=== PATIENT | female | born 1950 | race Caucasian/White ===

== ENCOUNTER 2020-01-04 13:07 | Outpatient (CLI) | payer MEDICARE, SELFPAY ==
--- NOTE | 2020-01-04 13:30 | USCV_ITS ---
Kita Carlos Age: 70 Gender: F : 1950 Exam Date: 01/04/2020 13:26 Ordering Phys: Vinnie Johnson MD ([email or web address]) Technologist: Bee Galeano [place] [facility] [place] PVD Risk Factors: Previous Vascular Surgery: Right Brachial BP: / Left Brachial BP: / Right Left Velocity (cm/s) Spectral Plaque Velocity (cm/s) Spectral Plaque Syst/Diast Broadening Syst/Diast Broadening 87.10/ 20.90 Prox CCA 94.80 / 23.00 75.90/ 16.30 Mid CCA 60.60 / 15.40 55.70/ 15.40 Distal CCA 54.80 / 19.20 35.00/ 9.20 Prox ICA 49.00 / 12.50 63.70/ 23.70 Mid ICA 75.90 / 26.90 67.00/ 27.60 Distal ICA 74.00 / 13.50 92.30 ECA 98.00 0.77 ICA/CCA 0.80 Antegrade Vertebral Antegrade 28.80/ 15.40 cm/s 45.20/ 12.50 cm/s Bi Subclavian Bi 116.5 89.40 0 FINDINGS Comparison: none available. No significant elevation of systolic or diastolic velocities. Waveforms are normal. No significant amount of calcified plaque or intimal thickening identified. CONCLUSIONS Normal carotid doppler ultrasound. Dr. Olivia Brothers DO (Electronically Signed) Final Date: 04 January 2020 15:17 S
--- NOTE | 2020-01-04 14:15 | USCV_ITS ---
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 Resting TBI of 0.6 bilaterally CONCLUSIONS 1. Abnormal resting NATHALIA and TBI on the right side, suggestive of moderate peripheral artery disease 2. Features of mild peripheral artery disease in the left side Dr Hugo Matthews MD [facility] (Electronically Signed) Final Date: 04 January 2020 20:16 S
== END 2020-01-04 13:08 | disposition home or self-care (01) ==
LOC: US 13:12
PROVIDERS: Family Provider Nurse Practitioner Family; PCP Nurse Practitioner Family; Visit Provider Internal Medicine Cardiovascular Disease
DX: I73.9 Peripheral vascular disease, unspecified (principal)
CPT/HCPCS: 93880; 93922

== ENCOUNTER 2020-01-22 10:54 | Outpatient (CLI) | payer MEDICARE, SELFPAY ==
--- NOTE | 2020-01-22 11:14 | CT_ITS ---
WS: [id number] CT scan of the chest With IV contrast, CT scan of the abdomen and pelvis with IV contrast and with oral contrast. Additional two-dimensional coronal and sagittal reconstruction was performed. 01/22/2020 Clinical Data: LYMPHOMA RESTAGING Comparison: None. DLP: 1570.[address] scans at [facility] use at least one of these dose optimization techniques: automat ed exposure control; mA and/or kV adjustment per patient size (includes targeted exams where dose is matched to clinical indication); or iterative reconstruction. Findings: Chest: No nodules, masses or effusions are seen. The heart size is normal with no pericardial effusion. The pulmonary arterial system and thoracic aorta demonstrate no abnormalities or dilatations. Trachea bifurcates normally into the bronchi. There is no axillary or significant mediastinal adenopathy. Abdomen/pelvis: The liver, spleen, adrenal glands and pancreas are normal. There are clips in the gallbladder fossa f rom a cholecystectomy. The kidneys show equal bilateral contrast excretion with no cyst or masses. The abdominal aorta is normal in size with calcification in the wall.. No appendicitis or diverticulitis is seen. Oral contrast is in the stomach, small bowel and proximal colon and there is no bowel dilatation. No abscess, adenopathy, ascites, mass, obstruction or ileus i s seen. The bladder is unremarkable. The uterus is absent. No inguinal hernia is seen. 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 CT/CT chest abd pel w con* Impression: 1. Negative for significant adenopathy. 2. Negative for acute abdominal or pelvic abnormalities.
[2020-01-22] MEDS: iohexol 300 mg/mL 50 mL Btl PO (11:21)
[2020-01-22 11:46] LABS: Basophils % 0.5 %; Eosinophils # 0.2 10^3/uL (0.0-0.8); Eosinophils % 3.3 %; Hematocrit 43.6 % (37.0-47.0); Hemoglobin 13.4 g/dL (11.5-15.3); Lymphocytes # 1.4 10^3/uL (0.8-4.8); Lymphocytes % 23.5 %; Mean Corpuscular HGB Conc 30.7 g/dL (30.0-36.0); Mean Corpuscular Volume 87.7 fL (81-99); Mean Platelet Volume 9.7 fL (7.4-10.4); Monocytes # 0.3 10^3/uL (0.2-0.9); Monocytes % 5.4 %; Neutrophils # 3.9 10^3/uL (1.8-7.7); Neutrophils % 66.8 %; Nucleated Red Blood Cells % 0 %; Platelet Count 206 10^3/cmm (130-400); Red Blood Count 4.97 10^6/uL (4.1-5.3); Red Cell Distribution Width 14.3 % (12.1-15.1); White Blood Count 5.8 10^3/uL (4.0-10.0)
[2020-01-22 12:08] LABS: Alanine Aminotransferase 31 U/L (0-33); Albumin Level 4.4 g/dL (3.5-5.2); Alkaline Phosphatase 71 IU/L (35-105); Anion Gap 14.7 (5-19); Aspartate Amino Transferase 29 U/L (0-32); Blood Urea Nitrogen 12 mg/dL (8-23); Calcium 10.1 mg/dL (8.5-10.5); Carbon Dioxide 28 mmol/L (22-29); Chloride 103 mmol/L (98-107); Chol HDL Ratio 3.34 mg/dL (0.0-4.40); Cholesterol 137 mg/dL (0-200); Globulin 3.1 g/dL (1.3-4.6); Glucose 123 mg/dL (65-115); HDL Cholesterol 41 mg/dL (60-100); LDL Cholesterol Calculated 76 mg/dL (50-129); LDL HDL Ratio 1.85 RATIO (0.00-3.22); Potassium 4.7 mmol/L (3.5-5.1); Sodium 141 mmol/L (136-145); Total Bilirubin 0.5 mg/dL (0.15-1.2); Total Protein 7.5 g/dL (6.6-8.7); Triglycerides 101 mg/dL (0-150)
[2020-01-22 12:31] LABS: Lactate Dehydrogenase 183 U/L (135-214)
[2020-01-22] MEDS: iohexol 300 mg/mL 100 mL Btl IV (12:41)
== END 2020-01-22 10:55 | disposition home or self-care (01) ==
PROVIDERS: Family Provider Nurse Practitioner Family; PCP Nurse Practitioner Family; Visit Provider Internal Medicine Medical Oncology
DX: I10 Essential (primary) hypertension (principal); I73.9 Peripheral vascular disease, unspecified; C83.34 Diffuse large B-cell lymphoma, lymph nodes of axilla and upper limb; Z92.21 Personal history of antineoplastic chemotherapy
CPT/HCPCS: 36415; 71260; 74177; 80053; 80061; 83615; 85025

== ENCOUNTER 2020-01-24 13:07 | Outpatient (CLI) | payer MEDICARE, SELFPAY ==
--- NOTE | 2020-01-26 14:43 | ONC FU_ITS ---
Dr. Mcintosh Patient Follow-Up Note Patient: Kita Carlos Unit #: [id number]: 1950 Dicatated By: Harry Mcintosh M.D.Date of Visit:Jan 24, 2020 Onc Med Follow-up/Prog Note Chief Complaint: Lymphoma. History of Present Illness: This is a 70 year-old woman with large B-cell lymphoma, non-germinal center type. She presented with a left axillary mass, first noted around April of this year. She had evaluation with bilateral diagnostic mammogram with left breast ultrasound on 08/23/2018. Mammogram showed scattered fibroglandular densities bilaterally. Increased soft tissue thickness and fatty density was noted in the area of the palpable lesion, which was at the edge of the field of view along the left axillary tail. Ultrasound showed a well-circumscribed large round hypoechoic mass lesion within the left axilla measuring 4.4 x 4.1 x 3.7 cm. An adjacent enlarged nodule or lymph node measured 1.0 x 0.6 cm. She underwent ultrasound-guided core biopsy of the mass on 08/29/2018. Pathology was consistent with large B-cell lymphoma, non-germinal center type. By IHC, the tumor cells were noted to express CD20, BCL-6, MU M1, CD30, and BCL-2. They were noted to have lack of CD10 expression. CD23 showed focal positivity within neoplastic cells. Ki-67 proliferation index was high at 90%. Staging PET/CT on 09/22/2018 showed FDG avid 4.5 cm mass in the left axilla, SUV 21.4. There were no other areas of malignancy identified. There was mild FDG activity present within normal-sized bilateral inguinal lymph nodes, maximum SUV 2.8. I had seen her initially on 09/27/2018. In the presence of a CD30 positive lymphoma, I had consulted with Dr. Nette Ayala at [facility]. There was no active clinical trial available. She indicated that in a similar patient she would treat with 4 cycles of R-CHOP chemotherapy, and that in the setting of a negative PET/CT after 2 cycles, she would defer consolidation radiation. She began cycle 1 of R-CHOP on 10/19/2018. She was given first cycle prophylaxis with Neulasta. She developed fatigue and low-grade fever around a 6 or 7. She was given antibiotic coverage with Levaquin, and her symptoms resolved within a few days. Her blood counts remained adequate. She was unable to continue with cycle 2 on 11/09/2018 and with cycle 3 on 11/30/2018. Restaging PET/CT on 12/10/2018 showed a solitary left axillary lymph node measuring 1.4 x 2.4 cm of SUV 1.9 compared to 4.5 cm with SUV 21 on the pretreatment study. There were no other areas of abnormal uptake. She then continued with her 4th cycle of chemotherapy on 12/21/2018. Given the mild residual activity on the restaging PET/CT, I did recommend consolidation radiation. She completed treatment on 02/07/2019 to a total dose of 4000 cGy. She tolerated it well. Restaging PET/CT on 05/13/2019 shows a left axillary lymph node with central calcification with FDG activity less than that of mediastinal background, consistent with treated malignancy. There was no evidence for active recurrent lymphoma. With those findings, she was followed on observation/expectant management. Surveillance CT scans of the chest, abdomen, and pelvis on 01/22/2020 showed no significant adenopathy or acute findings. She is seen for a follow-up visit. She has been feeling good generally. She says her energy is not quite as good as it used to be, but she does have normal activity. ECOG score is 0. She has good appetite. She has gained weight. She has no fever or night sweats. She has no shortness of breath, cough, or chest pain. She has no GI or complaints. She does have some discomfort in the left axillary area. She has no other joint or bone pain. She has occasional numbness in her hands, but that has been going on for years. She has no other focal neurologic symptoms. She currently is undergoing evaluation for peripheral arterial disease. Medications: Aspirin 1 Tablet (of 81 mg) Oral daily, Atorvastatin Calcium 1 Tablet (of 20 mg) Oral daily, EQL [place] 3 Fish Oil 1 Capsule (of 1200 mg) Oral daily, Multivitamin Adult Tablet Oral daily, Selenium 1 Capsule Oral daily Allergies: Sulfa Review of Systems: Constitutional - Her energy is not quite as good as it used to be, but she has normal activity. Appetite is good. She has gained weight. She does not have fever, night sweats, or hot flashes. ECOG score 0, ENMT - No sinus congestion/drainage. No mouth sores. No sore throat or difficulty swallowing, Hematologic/Lymphatic - No abnormal bruising or bleeding, Respiratory - No shortness of breath. No cough. No pleuritic pain or hemoptysis, Cardiovascular - No angina pain. No palpitations, Gastrointestinal - No nausea or vomiting. No heartburn or acid reflux. No diarrhea or constipation. No blood in the stool or black stools, Genitourinary (F) - No dysuria or hematuria. No urinary frequency. No urgency or incontinence, Musculoskeletal - She has some pain in her left underarm area. She has no other joint or bone pain, Integumentary - No skin complications, Neurologic - No headache or dizziness. She has chronic numbness in her hands that comes and goes, Psychiatric - No anxiety or depression. No insomnia. Vital Signs: Performed on Jan 24, 2020 13:19 Height - 65.00 in Weight - 182.4 lbs (HIGH) BSA - 1.90 sq.m BMI - 30.35 (HIGH) Pulse - 66 /min Respiration - 16 /min BP - 131/79 mm(hg) O2 Sat - 97 % Pain - 0 Physical Examination: Constitutional - She looks good generally, Eyes - Sclerae nonicteric. Conjunctivae clear, ENMT - No lesions noted in the oral cavity, Hematologic/Lymphatic - No cervical, clavicular, or axillary adenopathy, Respiratory - Lungs are clear with good air movement bilaterally, Cardiovascular - Heart rhythm is regular. There is no murmur, gallop or rub noted, Abdomen - Mildly distended but soft. Liver and spleen are not enlarged. There is no abdominal mass or ascites noted and there is no inguinal adenopathy, Extremities - No edema. She has palpable dorsalis pedis pulses bilaterally, but very weak on the right, Neurologic - No focal neurologic deficits noted. Lab/Imaging: Test performed on Jan 22, 2020 11:40 Cholesterol, Total 137 mg/dL Glucose 123 mg/dL LDH, Total 183 IU/L BUN 12 mg/dL HDL Cholesterol 41 mg/dL Creatinine 0.7 mg/dL LDL Cholesterol 76 mg/dL Cr Clearance (Est) 90.41 mL/min Triglycerides 101 mg/dL Sodium 141 mmol/L Potassium 4.7 mmol/L Chloride 103 mmol/L CO2 28 mmol/L Calcium 10.1 mg/dL Protein, Total 7.5 g/dL Albumin 4.4 g/dL Globulin 3.1 g/dL Bilirubin, Total 0.5 mg/dL Alkaline Phosphatase 71 IU/L AST (SGOT) 29 IU/L ALT (SGPT) 31 IU/L WBC 5.8 10^9/L RBC 4.97 10^12/L HGB 13.4 g/dL HCT 43.6 % MCV 87.7 fl MCH 27.0 pg MCHC 30.7 g/dL RDW 14.3 % Platelet Count 206 10^9/L MPV 9.7 fL Neutrophils (Gran) 3.9 10^9/L Lymphocytes 1.4 10^9/L Monocytes 0.3 10^9/L Eosinophils 0.2 10^9/L Basophils 0.0 10^9/L Manual Lymphocytes 23.5 % Manual Monocytes 5.4 % Manual Eosinophils 3.3 % Manual Basophils 0.5 % Impression: 1. Patient with large B-cell lymphoma, non-terminal center type, involving a left axillary lymph node. The pathology report indicated that evaluation was limited due to the small size of the specimen. The tumor cells were noted to be CD20 positive and CD30 positive. Her disease appeared to be stage I, as there were no other areas of involvement noted on staging PET/CT. 2. She he was treated with 4 cycles of R-CHOP chemotherapy, completed on 12/21/2018. 3. She was then given consolidation radiation to the left axilla. Treatment was completed on 02/14/2019 to a total dose of 4000 cGy. 4. Restaging PET/CT on 05/13/2019 showed residual left axillary lymph node with central calcification with FDG activity less than that of mediastinal background, consistent with treated malignancy. She has been followed on observation/expectant management following completion of the consolidation radiation. She currently is undergoing evaluation for peripheral arterial disease. She is otherwise doing well clinically. Thus far there has been no evidence of recurrence/progression of the lymphoma. Plan: She remains on observation/expectant management. She will be scheduled for a follow-up visit in 6 months. Signed By: Harry Mcintosh M.D. <<Signature on File>>
== END 2020-01-24 13:08 | disposition home or self-care (01) ==
LOC: ONCMED 13:08
PROVIDERS: Family Provider Nurse Practitioner Family; PCP Nurse Practitioner Family; Visit Provider Internal Medicine Medical Oncology
DX: Z08 Encounter for follow-up examination after completed treatment for malignant neoplasm (principal); Z85.72 Personal history of non-Hodgkin lymphomas; Z79.82 Long term (current) use of aspirin; Z92.21 Personal history of antineoplastic chemotherapy; Z92.3 Personal history of irradiation; I73.9 Peripheral vascular disease, unspecified
CPT/HCPCS: G0463

== ENCOUNTER 2020-02-02 09:01 | Outpatient (CLI) | payer MEDICARE, SELFPAY ==
--- NOTE | 2020-02-02 09:30 | CT_ITS ---
WS: [id number] CT ANGIOGRAPHY OF THE ABDOMINAL AORTA WITH RUNOFF TO THE ANKLES HISTORY: Abnormal resting NATHALIA and TBI right side TECHNIQUE: Arterial injection is performed during imaging to evaluate the aorta and runoff vessels to the ankles. MIP and volume rendering imaging has also been performed. All images are reviewed. All C T scans at [facility] use at least one of these dose optimization techniques: automated ex posure control; mA and/or kV adjustment per patient size (includes targeted exams where dose is match ed to clinical indication); or iterative reconstruction. Contrast: Omnipaque 350; 95 mL IV. DLP: 1363.08 mGycm COMPARISON: 01/22/2020. 01/04/2020. 2 lung bases are clear. Heart size is normal. Small hiatal hernia. Mild hepatic steatosis. Prior chol ecystectomy. The solid organs of the upper abdomen are negative. No adenopathy or fluid. Abdominal aorta: Atherosclerosis within the aorta. No aneurysm. Plaque and intimal thickening extends into the bifurcation. No stenosis. Celiac axis, SMA and renal arteries are widely patent. Inferior m esenteric artery is patent. Duplicated IVC. RIGHT lower extremity arterial system: Calcified plaque and some intimal thickening is mild throughou t the common, internal and external carotid arteries. Moderate stenosis involving the proximal superf icial femoral artery. Moderate stenosis over a long segment and the proximal SFA. Stenosis maximal at 67%. Small caliber SFA with complete occlusion in the mid SFA. There is reconstitution at Mahesh's canal. Posterior tibial artery is normal caliber. Very small caliber and incompletely visualized post erior tibial artery. Posterior tibial arteries probably completely occluded at the mid to distal tibi a. Good runoff via the anterior and peroneal arteries. LEFT lower extremity or just system: Calcified plaque at the proximal LEFT common iliac artery. Maxim al stenosis 23% within the proximal common iliac. Mild narrowing in the mid to distal common iliac ar zenaida. Internal and external iliacs are both patent. Superficial femoral artery and the deep profunda are normal caliber. No popliteal artery occlusion. Posterior tibial artery is not identified beyond t he mid tibia. CT/CT angio abd aorta runof [id number] IMPRESSION: 1. Complete occlusion mid to distal RIGHT SFA with reconstitution near Mahesh' s canal. Proximal SFA is small caliber. 2. Long segment stenosis in the proximal RIGHT SFA with stenosis at 67%. This is proximal to the complete occlusion more distally. 3. Mild atherosclerosis LEFT common iliac artery without complete occlusion or significant stenosis. 4. Posterior tibial arteries are not identified beyond the mid tibia suggestin g complete occlusion or very small caliber.
[2020-02-02] MEDS: iohexol 350 mg/mL 100 mL Btl IV (10:16)
== END 2020-02-02 09:02 | disposition home or self-care (01) ==
LOC: RADWPI 09:08
PROVIDERS: Family Provider Nurse Practitioner Family; PCP Nurse Practitioner Family; Visit Provider Internal Medicine Cardiovascular Disease
DX: I74.3 Embolism and thrombosis of arteries of the lower extremities (principal); I73.9 Peripheral vascular disease, unspecified; I70.92 Chronic total occlusion of artery of the extremities; I70.292 Other atherosclerosis of native arteries of extremities, left leg
CPT/HCPCS: 75635; Q9967

== ENCOUNTER 2020-03-19 23:27 | Observation (INO) | payer MEDICARE, SELFPAY ==
[2020-03-19] VITALS (20 sets, daily range): BP systolic 129–172; BP diastolic 69–89; PULSE 48–75; RESP 9–24; TEMP 36.9–37.2; O2SAT 94–97; BMI 28.0
[2020-03-19] MEDS: diphenhydrAMINE 50 mg Capsule PO (07:50)
[2020-03-19 08:22] LABS: Basophils % 0.8 %; Eosinophils # 0.2 10^3/uL (0.0-0.8); Eosinophils % 3.2 %; Hematocrit 41.9 % (37.0-47.0); Hemoglobin 13.2 g/dL (11.5-15.3); Lymphocytes # 1.2 10^3/uL (0.8-4.8); Lymphocytes % 24.4 %; Mean Corpuscular HGB Conc 31.5 g/dL (30.0-36.0); Mean Corpuscular Hemoglobin 28.1 pg (28.0-34.0); Mean Corpuscular Volume 89.1 fL (81-99); Mean Platelet Volume 9.9 fL (7.4-10.4); Monocytes # 0.3 10^3/uL (0.2-0.9); Monocytes % 6.7 %; Neutrophils # 3.2 10^3/uL (1.8-7.7); Neutrophils % 64.5 %; Nucleated Red Blood Cells % 0 %; Platelet Count 207 10^3/cmm (130-400)
--- NOTE | 2020-03-19 08:24 | PM.HP ---
Providers/Chief Complaint Admitting Physician: Vinnie Johnson MD Primary Care Provider: Wilfrid Kearney APN Chief Complaint: PVD History of Present Illness Kita Carlos is a 70 year old female past medical history significant for [id number] of tobacco abuse quit 2 years ago, non-Hodgkin lymphoma status post chemotherapy and radiation in remission, normal left ventricular function by echo, twelve-lead EKGs suggestive of possible old anterior wall myocardial infarction which could be due to lead placement. Patient for lifestyle limiting claudication underwent CT angiogram which was suggestive of severe peripheral vascular disease with complete occlusion off right SFA in mid to distal and moderate to severe stenosis of the proximal right SFA. Since patient failed conservative management and because of the fact it is lifestyle limiting claudication she is here for peripheral angiogram and intervention if indicated. Patient has been explained all risks benefits and alternative for drug-coated balloon using. She is aware of FDA warning regarding possible increase mortality in drug-coated balloon group. patient would like to proceed with it. Medications/Allergies Home Medications Medication Instructions Recorded Confirmed Last Taken Type aspirin 81 mg tablet,delayed 81 mg PO DAILY tab 12/05/19 03/18/20 03/18/20 09:30 History release atorvastatin 20 mg tablet 20 mg PO DAILY #30 tab 12/05/19 03/18/20 03/19/20 06:15 Rx multivitamin 1 tab PO DAILY tab 12/05/19 03/18/20 03/18/20 09:30 History omega-3 fatty acids 1,000 mg 2,100 mg PO DAILY cap 12/05/19 03/18/20 03/18/20 09:30 History capsule selenium 200 mcg capsule 200 mcg PO DAILY cap 12/05/19 03/18/20 03/18/20 09:30 History Allergies Allergy/AdvReac Type Severity Reaction Status Date / Time Sulfa (Sulfonamide Allergy Unknown ALGY-Rash Verified 03/19/20 08:23 Antibiotics) PFSH Acute PFSH: Medical History (Updated 03/19/20 @ 08:29 by Vinnie Johnson MD) Claudication of both lower extremities HTN (hypertension), benign Lymphoma in remission Family History Father Hypertension Mother Stroke Social History Smoking and tobacco status: former smoker Vitals/I&O/Wt Last Vital Signs Temp 98.4 F 03/19/20 08:15 Pulse 57 L 03/19/20 08:15 Resp 17 03/19/20 08:15 BP 171/81 03/19/20 08:15 Pulse Ox 96 03/19/20 08:15 Weight last 48 hrs Weight 179 lb Physical Exam Narrative: EXAM NARRATIVE: GENERAL: Patient is alert, awake and oriented x3. NECK: No jugular vein distension. HEENT: No cyanosis. No icterus. No pallor. HEART: Regular S1 and S2. No murmur, rub or gallop. LUNGS: Clear to auscultate bilaterally. ABDOMEN: Soft, nontender and nondistended. Positive bowel sounds. No guarding, rebound or tenderness. [] CENTRAL NERVOUS SYSTEM: Grossly nonfocal. EXTREMITIES: Lower extremities without edema bilaterally. Pulses not palpable Data : 03/19/20 08:05 03/19/20 08:05 Other Labs: CT ANGIOGRAPHY OF THE ABDOMINAL AORTA WITH RUNOFF TO THE ANKLES HISTORY: Abnormal resting NATHALIA and TBI right side TECHNIQUE: Arterial injection is performed during imaging to evaluate the aorta and runoff vessels to the ankles. MIP and volume rendering imaging has also been performed. All images are reviewed. All CT scans at [facility] use at least one of these dose optimization techniques: automated exposure control; mA and/or kV adjustment per patient size (includes targeted exams where dose is matched to clinical indication); or iterative reconstruction. Contrast: Omnipaque 350; 95 mL IV. DLP: 1363.08 mGycm COMPARISON: 01/22/2020. 01/04/2020. 2 lung bases are clear. Heart size is normal. Small hiatal hernia. Mild hepatic steatosis. Prior cholecystectomy. The solid organs of the upper abdomen are negative. No adenopathy or fluid. Abdominal aorta: Atherosclerosis within the aorta. No aneurysm. Plaque and intimal thickening extends into the bifurcation. No stenosis. Celiac axis, SMA and renal arteries are widely patent. Inferior mesenteric artery is patent. Duplicated IVC. RIGHT lower extremity arterial system: Calcified plaque and some intimal thickening is mild throughout the common, internal and external carotid arteries. Moderate stenosis involving the proximal superficial femoral artery. Moderate stenosis over a long segment and the proximal SFA. Stenosis maximal at 67%. Small caliber SFA with complete occlusion in the mid SFA. There is reconstitution at Mahesh's canal. Posterior tibial artery is normal caliber. Very small caliber and incompletely visualized posterior tibial artery. Posterior tibial arteries probably completely occluded at the mid to distal tibia. Good runoff via the anterior and peroneal arteries. LEFT lower extremity or just system: Calcified plaque at the proximal LEFT common iliac artery. Maximal stenosis 23% within the proximal common iliac. Mild narrowing in the mid to distal common iliac artery. Internal and external iliacs are both patent. Superficial femoral artery and the deep profunda are normal caliber. No popliteal artery occlusion. Posterior tibial artery is not identified beyond the mid tibia. CT/[place] ang[place]d [place]of [id number] IMPRESSION: 1. Complete occlusion mid to distal RIGHT SFA with reconstitution near Mahesh's canal. Proximal SFA is small caliber. 2. Long segment stenosis in the proximal RIGHT SFA with stenosis at 67%. This is proximal to the complete occlusion more distally. 3. Mild atherosclerosis LEFT common iliac artery without complete occlusion or significant stenosis. 4. Posterior tibial arteries are not identified beyond the mid tibia suggesting complete occlusion or very small caliber. A&P Assessment and plan (1) Claudication of both lower extremities: For lifestyle limiting claudication, And severe peripheral vascular disease of right SFA we will proceed with peripheral angiogram and intervention if indicated. Status: Acute (2) HTN (hypertension), benign: Well controlled continue current regimen. Status: Acute Attestations Medical Necessity Statement*: I'm not expecting his stay to cross more than 1 midnight. Coding Level of Care Code Acute Lorry Weigher for Shira Staton Diagnoses Claudication of both lower extremities I73.9 HTN (hypertension), benign I10
--- NOTE | 2020-03-19 08:30 | XACV_ITS ---
Wt: 81 kg BSA: 1.98 m2 Any Known Allergies: Sulfa Gender: Female : 1950 Exam Type: Invasive Peripheral Vascular Procedure(s): Procedure Description: Peripheral Cath Diagnostic Procedure Procedure Description: Abdominal aortic angiography Procedure Description: Lower extremities' angiography Procedure Description: Peripheral vascular Intervention Procedure Description: PV Balloon Procedure Description: PV Atherectomy Exam Priority: Routine Lower Extremity Interventional Findings Peripheral Procedure Description: Life style limiting claudication , Joselin grade V :Linh stage IV. ProcedureLeft common femoral approach was adopted. Abdominal aorta with luminal irregularity without aneurysm, right and left renal artery has luminal irregularity without any stenosis #1 Left and right common iliac artery has luminal irregularity#2 Left and right external iliac artery has luminal irregularity#3 Left and right Profunda femoral artery has luminal irregularity#5 Left and right internal iliac artery has luminal irregularities#6 Left and right common femoral artery has luminal irregularities #9 Right SFA has 100% chronically highly calcified occlusion in mid to distal segment reconstitute at popliteal artery . #10 Right and left popliteal arteries has luminal irregularities , right and left tibioperoneal trunk has luminal irregularities, below the knee anterior-posterior tibial arteries and peroneal arteries were not well-visualized. Left common femoral artery approach was adopted, after somewhat difficulty we were able to cross the right SFA lesion . CSI atherectomy followed by non-drug coated and drug-coated balloon angioplasty to the performed in SFA. Excellent angiographic result of right SFA, popliteal artery was noted with good flow. Excellent two-vessel runoff was noted with right anterior tibial and peroneal artery was noted. Right Posterior tibial artery was noted to be occluded. Conclusions 70-year-old female past medical history significant for hypertension hyperlipidemia For lifestyle limiting claudication underwent peripheral angiogram she was found to have chronically occluded proximal to distal SFA. It was treated with CSI atherectomy using 2.0 by followed by balloon angioplasty using 5.0 htk-efpt-ydxepp balloon later on treated with 6.0 drug-coated balloon. Excellent angiographic result Of right SFA with two-vessel runoff noted below the knee. Recommendations 1-Return to inpatient for close monitoring and routine cath care2-Risk factor modification for secondary prevention3-Statin and aspirin 81 mg life-long, if tolerated4-Continue Plavix 75mg p.o. daily for at least three months. We will assess at the end of one year again to continue if further or not5-Continue optimal medical management6-Follow up with Dr. Johnson in four weeks and your primary care in 10 days. Hemodynamic Data Phase:Rest AO : 114.0 mmHg / 65.0 mmHg ( 88.0 mmHg ) @ 4:20:00 AM 126.0 mmHg / 58.0 mmHg ( 84.0 mmHg ) @ 4:27:00 AM 135.0 mmHg / 63.0 mmHg ( 89.0 mmHg ) @ 4:39:00 AM 135.0 mmHg / 70.0 mmHg ( 92.0 mmHg ) @ 4:47:00 AM 159.0 mmHg / 75.0 mmHg ( 107.0 mmHg ) @ 5:02:00 AM Access Site Site: Left Femoral artery Sheath Size: 6 Fr Hemost... Method: Suture Hemost... Success: Successful Procedure Details Findings Procedure Consent Obtained. Pre-Procedure Time Out. Identified patient by full name and date of as verbalized by the patient/guarantor. Does the consent match the physician's order: Yes. Accurate & Complete Informed Consent: Yes. Inpatient/Outpatient History & Physical on Chart: Yes. If H&P is completed, is and addenduem needed: N/A; If yes, is the addendum complete: N/A. Visualize and Verify Site with Patient/Guarantor: N/A. Relevant Radiology Images available: Yes. Pre-op teaching completed and patient verbalized understanding. The risks, benefits, and alternatives of sedation and/or procedure were discussed by physician. The patient agrees to continue. Procedure started. PERRLA. Strong, equal hand boatwright bilaterally. Lungs clear x 5 lobes. IV Site on Arrival: 20 gauge in the left anticubital. Pre Procedural Pulses: right dorsalis pedis was Doppled. Pre Procedural Pulses: left dorsalis pedis was 2+. Pre Procedural Pulses: right posterior tibial was Doppled. Pre Procedural Pulses: left posterior tibial was 1+. Oxygen started at 2liters/min via nasal canula. bilateral groins was prepped with chloroprep then draped in the usual sterile fashion. Physician notified. Baseline sample Acquired. HR: 65 BPM. Patient's family unavailable. Physician arrived. Physician scrubbed in. Immediate Pre-Procedure Time Out. Correct Patient: Yes; Correct Procedure: Yes; Correct Site: Yes; Correct Patient Position: Yes; Correct Supplies: Yes; Dried Flammable Prep: Yes; Blood Products Available: N/A;. Lidocaine 1% infiltrated to the left groin. Arterial access obtained with micropuncture set. Equipment: 6F - Femoral. Cardiac Cath Pack. ACIST Manifold Kit Model BT 2000. Heparinized Saline (2 units/mL), 1000 mL bag. Kit, Micropuncture. Inventory is JJ 6F 11cm Licha Plus Sheath. A CORDIS 5F UF catheter 65cm was advanced over the wire and used for Abdominal aortogram. Abdominal aortogram performed in AP @ 10 mL/sec for a total of 30 mL. Inventory is TR Glidewire Angled .038 260cm. Glidewire inserted through catheter to place end of catheter in the right common iliac. Catheter removed over glidewire. Inventory is CK Flexor 6F 45cm Sheath. Sheath upsized to a 6 Fr. Right common iliac selected and arteriogram with runoff performed @ 10 mL/sec for a total of 30 mL. A Chlorine Genie SEEKER SUPPORT CATHETER .035 was advanced over the wire and used for Lower extremity arteriography. Catheter crossed lesion in the right SFA. Support catheter positioned in the popliteal to better visualize the distal vessels. Glidewire removed and injection of distal vessels performed. Viper wire inserted through catheter and across lesion in the right SFA. Side port of sheath attached to Normal Saline flush at KVO to maintain patency. Seeker removed. Diamondback 2.0 solid crown gia advanced to lesion in mid right SFA. Diamondback 2.0 solid crown gia, LOT # [id number], exp 08/21/2021. The 2.0 mm gia made several passes across lesion in mid right SFA. A CSI 2.0 Solid crown gia was prepped and advanced across the Mid Superficial Femoral, Right lesion. Pass Number: 1. A CSI 2.0 Solid crown gia was prepped and advanced across the Mid Superficial Femoral, Right lesion. Pass Number: 2. Gia removed. Results checked. Seeker inserted over the Viper wire. Viperwire removed. Glidewire inserted through Seeker across lesion in right SFA. Balloon inserted over the wire across the lesion. Inflation number : 1 A AB Galva 35 CERTIFIED PROCEDURAL CODER Catheter [id number] was prepped and advanced across the Mid Superficial Femoral, Right , then inflated to 8 SELWYN for 1:01 seconds. Inflation number: 2 The AB Galva 35 CERTIFIED PROCEDURAL CODER Catheter [id number] was reinflated across the Mid Superficial Femoral, Right, to 8 SELWYN for 1:00 seconds. Balloon removed. Results checked. Lutonix [id number], Ref# [id number], LOT# [id number], Exp 01/09/2021. Inflation number : 3 A BARD Lutonix [id number] was prepped and advanced across the Mid Superficial Femoral, Right , then inflated to 6 SELWYN for 1:03 seconds. Inflation number: 4 The BARD Lutonix [id number] was reinflated across the Mid Superficial Femoral, Right, to 6 SELWYN for 1:00 seconds. Wire removed. Results checked. Results checked. Left common iliac selected and arteriogram with runoff performed @ 10 mL/sec for a total of 30 mL. A Suture was successful obtaining hemostatsis at the Left Femoral artery insertion site. Sheath(s) sutured into position with 2-0 silk and sterile 4x4's and Op-site applied over the site. No oozing or signs and symptoms of hematoma noted. Arterial sheath flushed and connected to tranducer and pressure bag with heparinized saline. Post Procedure: right dorsalis pedis pulse 1+. Post Procedure: right posterior tibial pulse 1+. PERRLA. Strong, equal hand boatwright bilaterally. No VTE prophylaxis required. Medication's Wasted: Verapamil = 4 mg. Medication's Wasted: Nitro = 49.5 mL. Medication's Wasted: Heparin = 1000 units. Total IV fluids: 100 mL. Fluoro: 13:00. Contrast type used: Visipaque 320 mgI/mL, 500 mL bottle. [id number]. Post-op diagnosis: PAD. Complications: None. Estimated blood loss: 5mL-10mL. Procedure completed. Patient transferred by bed to ICU. Procedure Medications Start: 9:02 AM Stop: 9:02 AM Medication: Versed Amount: 1 mg Route: I.V. Start: 9:02 AM Stop: 9:02 AM Medication: Fentanyl Amount: 50 mcg Route: I.V. Start: 9:21 AM Stop: 9:21 AM Medication: Versed 1 mg and Fentanyl 25 mcg Amount: 1 Route: I.V. Start: 9:39 AM Stop: 9:39 AM Medication: Heparin Amount: 5000 units Route: I.V. Start: 9:42 AM Stop: 9:42 AM Medication: Versed 1 mg and Fentanyl 25 mcg Amount: 1 Route: I.V. Start: 9:59 AM Stop: 9:59 AM Medication: Versed Amount: 1 mg Route: I.V. Start: 10:03 AM Stop: 10:03 AM Medication: Nitrogylcerin Amount: 400 mcg Route: I.A. Start: 10:05 AM Stop: 10:05 AM Medication: Nitrogylcerin Amount: 400 mcg Route: I.A. Start: 10:17 AM Stop: 10:17 AM Medication: Plavix Amount: 300 mg Route: P.O. Start: 10:07 AM Stop: 10:07 AM Medication: Versed 1 mg and Fentanyl 25 mcg Amount: 1 Route: I.V. I, the attending physician, have reviewed and verified all procedure medications. Yes, all medications given per verbal order History/Risk Factors Hypertension: Yes Dyslipidemia: No Peripheral Arterial Disease (PAD): Yes Myocardial Infarction (MT): No Obesity: No Renal Disease: No Tobacco Use: Former Prior Interventions PCI: No CABG: No Valve Surgery: No Report Signatures Finalized by:Vinnie Johnson MD on 03/24/2020 2:56:49 PM
[2020-03-19 08:31] LABS: Blood Urea Nitrogen 14 mg/dL (8-23); Calcium 9.7 mg/dL (8.5-10.5); Carbon Dioxide 28 mmol/L (22-29); Chloride 104 mmol/L (98-107); Creatinine Clr Calc Pharmacy 69.6783; Glucose 124 mg/dL (65-115); Osmolality Calculated 294 mOsm/kg (285-295); Sodium 143 mmol/L (136-145)
--- NOTE | 2020-03-19 08:58 | W.PM.OPSUD ---
Surgery/Procedure H&P Update DATE OF PROCEDURE: March 19, 2020 DATE H&P PERFORMED: 03/19/20 H&P UPDATE INFORMATION: I have examined patient prior to procedure CHANGES TO PREVIOUS DOCUMENTATION: None PREOP DIAGNOSIS: Lifestyle limiting claudication of right leg PLANNED PROCEDURE: Operation Date: 03/19/20 08:30 Proposed Procedures p Peripheral Diagnostic(Not Applicable) - Vinnie Johnson MD PATIENT REASSESSED PRIOR TO SEDATION, WITH NO CHANGE NOTED: Yes PHYSICAL EXAM: alert, oriented x 3, clear to auscultation bilaterally, regular rate & rhythm and operative site marked AIRWAY EVAL/ANESTHESIA PLAN: normal airway and ASA II
[2020-03-19] MEDS: atorvastatin 40 mg Tablet 20 MG PO (10:59)
[2020-03-19] MEDS: aspirin 81 mg EC Tablet PO (11:00)
[2020-03-19] MEDS: HYDROcodone-acetaminophen 5-325 mg Tablet 1 TAB PO ×2 (11:00→21:39)
[2020-03-19] MEDS: morphine 4 mg/mL SDV 1 mL 2 MG IVP (12:29)
[2020-03-19 14:35] LABS: Partial Thromboplastin Time 43.1 SECONDS (23.9-36.7)
[2020-03-19] MEDS: fentaNYL 50 mcg/mL INJ 2mL IVP (15:17)
--- NOTE | 2020-03-19 15:30 | PC.NURSE ---
Left groin sheath removed intact. Manual pressue held by nurse x 10 min. Drsg to site. No hematoma. No oozing.
--- NOTE | 2020-03-19 23:49 | PC.NURSE ---
PT TRANSFFERED FROM ICU TO ROOM 262-1. PT IS POST CATH. PRESSURE DRESSING IS TO THE LEFT FEMORAL ARTERY. DRESSING IS C/D/I. PT C/O PAIN AT A 6/10, BUT DOES NOT WANT ANY PAIN MEDS AT THIS TIME. WILL CONTINUE TO MONITOR.
[2020-03-20 04:00] VITALS: BP 137/81; PULSE 70; RESP 17; TEMP 36.8; O2SAT 93
[2020-03-20 07:57] VITALS: BP 154/83; PULSE 74; RESP 17; TEMP 36.9; O2SAT 94
--- NOTE | 2020-03-20 08:28 | PM.DCS ---
Discharge Providers Date of Discharge: March 20, 2020 Attending Provider at Discharge: Vinnie Johnson MD Primary Care Provider: Wilfrid Kearney APN Diagnoses at Discharge Discharge Diagnosis (1) Claudication of both lower extremities: Status: Acute (2) HTN (hypertension), benign: Status: Acute Reason for Visit Reason for Visit: Reason For Visit: PVD Hospital Course Hospital Course: 70-year-old female past medical history significant for hypertension hyperlipidemia For lifestyle limiting claudication underwent peripheral angiogram she was found to have chronically occluded proximal to distal SFA. It was treated with CSI atherectomy using 2.0 by followed by balloon angioplasty using 5.0 yyf-xlin-uslzkx balloon later on treated with 6.0 drug-coated balloon. Excellent angiographic result Of right SFA with two-vessel runoff noted below the knee. Patient postop stay was without any complication. This morning she denies any complain. Left groin looks good without hematoma. She is being discharged home with instruction to not to lift more than 12 pounds for next couple of days. She will be following up with cardiology in 7 days. She is encouraged to call us back if needed. Physical Exam Narrative: EXAM NARRATIVE: GENERAL: Patient is alert, awake and oriented x3. NECK: No jugular vein distension. HEENT: No cyanosis. No icterus. No pallor. HEART: Regular S1 and S2. No murmur, rub or gallop. LUNGS: Clear to auscultate bilaterally. ABDOMEN: Soft, nontender and nondistended. Positive bowel sounds. No guarding, rebound or tenderness. CENTRAL NERVOUS SYSTEM: Grossly nonfocal. EXTREMITIES: Lower extremities without edema bilaterally. Dopplerable anterior posterior tibial in right foot. Right foot is warm with good color. Left groin slightly bruised no hematoma. Const: COMMON NORMALS: alert Resp: COMMON NORMALS: clear to auscultation bilaterally AUSCULTATION: clear to auscultation bilaterally Neuro: SENSORIUM/ORIENTATION: Yes alert Discharge Data Data Completed and Pending: Pending at discharge Category Date Time Status BUSINESS SERVICES SALES REPRESENTATIVE request for service Routin e Exams 03/19/20 08:30 Taken Labs from last 24 hours 03/19/20 03/19/20 03/19/20 12:55 08:05 08:05 PT 13.20 INR 1.00 APTT 43.1 H Sodium 143 Potassium 4.0 Chloride 104 Carbon Dioxide 28 Anion Gap 15.0 BUN 14 Creatinine 0.7 Glucose 124 H Calculated Osmolal ity 294 Calcium 9.7 Vitals: Last Vital Signs Temp 98.4 F 03/20/20 07:57 Pulse 74 03/20/20 07:57 Resp 17 03/20/20 07:57 BP 154/83 03/20/20 07:57 Pulse Ox 94 03/20/20 07:57 Discharge Plan Discharge Patient Disposition: Home, Self-Care Prescriptions: New aspirin 81 mg Tablet,Delayed Release (Dr/Ec) 81 mg PO DAILY Qty: 30 RF: 3 clopidogrel 75 mg Tablet 75 mg PO DAILY Qty: 90 RF: 0 Continued aspirin [Adult Low Dose Aspirin] 81 mg tablet,delayed release (DR/EC) 81 mg PO DAILY RF: 0 multivitamin Tablet 1 tab PO DAILY RF: 0 selenium 200 mcg capsule 200 mcg PO DAILY RF: 0 omega-3 fatty acids [Fish Oil Concentrate] 1,000 mg capsule 2,100 mg PO DAILY RF: 0 atorvastatin 20 mg tablet 20 mg PO DAILY Qty: 30 RF: 4 Diet: Cardiac Activity: Increase activity as tolerated Patient Instructions: Peripheral Vascular Angioplasty (DC) Activity Restrictions/Additional Instructions: No lifting of more than 12 pounds for next 2 days. Follow with Charito Sung cardiology nurse practitioner in 7 days Discharge Attestations Time Spent in Discharge Care*: less than 30 min Quality Metrics Clinical Quality Measures During this hospital stay, did patient experience: None Coding Level of Care Code Established Pt Acute Lead Cytogenetic Technologist for Shira Staton Patient Type Established History Expanded Problem Focused Exam Expanded Problem Focused Medical Decision Making Moderate Complexity Diagnoses Claudication of both lower extremities I73.9 HTN (hypertension), benign I10
[2020-03-20] MEDS: aspirin 81 mg EC Tablet PO (09:08)
[2020-03-20] MEDS: atorvastatin 40 mg Tablet 20 MG PO (09:08)
[2020-03-20] MEDS: clopidogrel 75 mg Tablet PO (09:08)
--- NOTE | 2020-03-20 10:07 | PC.CHAP ---
Pastoral Care Encounter/Spiritual Assessment Type of Contact [] Declined metalsmith helper visit [] Patient/Family/Request visit [] Outpatient visit [] Follow-up visit [] Physician referral [] Code/Alert [x] Routine visit [] Staff referral [] Actively dying [] Patient sleeping [] Family support [] [] Out of room [] Palliative care [] [] Receiving care in room [] Pre-surgical visit [] Trauma [] Long length of stay [] ICU visit [] Other: Relational/Emotional Strength [] Patient feels connected with others/family/visitors/staff [] Distress [] Loneliness/isolation [] Abandonment Spirituality of Patient [] Person of Makayla [] Attends Religion of their [place]la [] Believes in Prayer [] Reads Bible or Denominational materials [] There are Spiritual issues to be addressed Automotive Painter Interventions [s] Prayer [] Active listening [] Non-anxious presence [] Spiritual/emotional support [] Crisis/trauma care [] Spiritual counseling [] Bereavement support [] Provided bereavement packet [] Provided Bible/devotional materials [] Provided toy/stuffed animal, coloring book to patient or family member [] Provided Communion [] Anointing/[place] [] Salvation [x] Completed spiritual assessment [] Other: Impact on Illness or Injury [] Angry [] Fearful [] Anxious [] Often cries [] Exhaustion [] Unable to work [] Unable to attend denominational [] Unable to walk/stand [] Unable to read [] Unable to drive [] Unable to eat/drink [] Unable to sleep [] Unable to be with family [] Patient intubated [] Other: Summary Patient getting discharged. Thankful for care. Time spent with patient 10 min
== END 2020-03-20 10:30 | disposition home or self-care (01) ==
LOC: MEDSURG 03-20 08:25 → ICU 03-20 14:53 → CCL 03-20 17:28 → MEDSURG 03-20 17:30
PROVIDERS: Admitting Provider Internal Medicine Cardiovascular Disease; Family Provider Nurse Practitioner Family; PCP Nurse Practitioner Family; Visit Provider Internal Medicine Cardiovascular Disease
DX: I65.23 Occlusion and stenosis of bilateral carotid arteries (principal); I10 Essential (primary) hypertension; Z87.891 Personal history of nicotine dependence; Z79.82 Long term (current) use of aspirin; Z82.49 Family history of ischemic heart disease and other diseases of the circulatory system; E78.5 Hyperlipidemia, unspecified
CPT/HCPCS: 12345; 36415; 37225; 75625; 75710; 80048; 85025; 85610; 85730; 96375; C1724; C1725; C1769; C1887; C1894; C2623; G0378; J1644; J2001; J2250; J2270; J3010; J3490; J7030; Q0163; Q9967

== ENCOUNTER → 2020-03-27 10:35 | Outpatient (BNVA) | payer MEDICARE, SELFPAY | PROVIDERS: Family Provider Nurse Practitioner Family; PCP Nurse Practitioner Family; Visit Provider Nurse Practitioner Family | DX: I73.9 Peripheral vascular disease, unspecified (principal) | CPT/HCPCS: 80048 ==

== ENCOUNTER 2020-09-23 10:13 | Outpatient (CLI) | payer MEDICARE, SELFPAY ==
[2020-09-23 11:14] LABS: Basophils % 0.6 %; Eosinophils # 0.2 10^3/uL (0.0-0.8); Eosinophils % 2.6 %; Hematocrit 45.1 % (37.0-47.0); Hemoglobin 13.8 g/dL (11.5-15.3); Lymphocytes # 1.6 10^3/uL (0.8-4.8); Lymphocytes % 22.9 %; Mean Corpuscular HGB Conc 30.6 g/dL (30.0-36.0); Mean Corpuscular Hemoglobin 27.2 pg (28.0-34.0); Mean Corpuscular Volume 88.8 fL (81-99); Mean Platelet Volume 9.8 fL (7.4-10.4); Monocytes # 0.5 10^3/uL (0.2-0.9); Monocytes % 6.7 %; Neutrophils # 4.58 10^3/uL (1.8-7.7); Neutrophils % 66.8 %; Nucleated Red Blood Cells % 0 %; Platelet Count 223 10^3/cmm (130-400); Red Blood Count 5.08 10^6/uL (4.1-5.3); Red Cell Distribution Width 14.6 % (12.1-15.1); White Blood Count 6.9 10^3/uL (4.0-10.0)
[2020-09-23 11:21] LABS: Alanine Aminotransferase 23 U/L (0-33); Albumin Level 4.4 g/dL (3.5-5.2); Alkaline Phosphatase 83 IU/L (35-105); Anion Gap 12.9 (5-19); Aspartate Amino Transferase 19 U/L (0-32); Blood Urea Nitrogen 14 mg/dL (8-23); Calcium 9.9 mg/dL (8.5-10.5); Carbon Dioxide 29 mmol/L (22-29); Chloride 102 mmol/L (98-107); Globulin 2.5 g/dL (1.3-4.6); Glucose 87 mg/dL (65-115); Lactate Dehydrogenase 141 U/L (135-214); Osmolality Calculated 288 mOsm/kg (285-295); Potassium 4.9 mmol/L (3.5-5.1); Sodium 139 mmol/L (136-145); Total Bilirubin 0.3 mg/dL (0.15-1.2); Total Protein 6.9 g/dL (6.6-8.7)
--- NOTE | 2020-09-27 08:14 | ONC FU_ITS ---
Dr. Mcintosh Patient Follow-Up Note Patient: Kita Carlos Unit #: [id number]: 1950 Dicatated By: Harry Mcintosh M.D.Date of Visit:Sep 23, 2020 Onc Med Follow-up/Prog Note Chief Complaint: Lymphoma. History of Present Illness: This is a 70 year-old woman with large B-cell lymphoma, non-germinal center type. She presented with a left axillary mass, first noted around April of this year. She had evaluation with bilateral diagnostic mammogram with left breast ultrasound on 08/23/2018. Mammogram showed scattered fibroglandular densities bilaterally. Increased soft tissue thickness and fatty density was noted in the area of the palpable lesion, which was at the edge of the field of view along the left axillary tail. Ultrasound showed a well-circumscribed large round hypoechoic mass lesion within the left axilla measuring 4.4 x 4.1 x 3.7 cm. An adjacent enlarged nodule or lymph node measured 1.0 x 0.6 cm. She underwent ultrasound-guided core biopsy of the mass on 08/29/2018. Pathology was consistent with large B-cell lymphoma, non-germinal center type. By IHC, the tumor cells were noted to express CD20, BCL-6, MU M1, CD30, and BCL-2. They were noted to have lack of CD10 expression. CD23 showed focal positivity within neoplastic cells. Ki-67 proliferation index was high at 90%. Staging PET/CT on 09/22/2018 showed FDG avid 4.5 cm mass in the left axilla, SUV 21.4. There were no other areas of malignancy identified. There was mild FDG activity present within normal-sized bilateral inguinal lymph nodes, maximum SUV 2.8. I had seen her initially on 09/27/2018. In the presence of a CD30 positive lymphoma, I had consulted with Dr. Nette Ayala at [facility]. There was no active clinical trial available. She indicated that in a similar patient she would treat with 4 cycles of R-CHOP chemotherapy, and that in the setting of a negative PET/CT after 2 cycles, she would defer consolidation radiation. She began cycle 1 of R-CHOP on 10/19/2018. She was given first cycle prophylaxis with Neulasta. She developed fatigue and low-grade fever around a 6 or 7. She was given antibiotic coverage with Levaquin, and her symptoms resolved within a few days. Her blood counts remained adequate. She was unable to continue with cycle 2 on 11/09/2018 and with cycle 3 on 11/30/2018. Restaging PET/CT on 12/10/2018 showed a solitary left axillary lymph node measuring 1.4 x 2.4 cm of SUV 1.9 compared to 4.5 cm with SUV 21 on the pretreatment study. There were no other areas of abnormal uptake. She then continued with her 4th cycle of chemotherapy on 12/21/2018. Given the mild residual activity on the restaging PET/CT, I did recommend consolidation radiation. She completed treatment on 02/07/2019 to a total dose of 4000 cGy. She tolerated it well. Restaging PET/CT on 05/13/2019 shows a left axillary lymph node with central calcification with FDG activity less than that of mediastinal background, consistent with treated malignancy. There was no evidence for active recurrent lymphoma. With those findings, she was followed on observation/expectant management. She has otherwise been in good health. During follow-up she was found to have evidence of peripheral arterial disease. She underwent atherectomy/balloon angioplasty of the right superficial femoral artery on 03/19/2020. She has no other ongoing medical illnesses. Other surgeries include hysterectomy/bilateral salpingo-oophorectomy, cholecystectomy, and cataract excisions. She has history of smoking 1/2 pack of cigarettes daily for 15 years. She quit smoking in March 2018. Surveillance CT scans of the chest, abdomen, and pelvis on 01/22/2020 showed no significant adenopathy or acute findings. She continued on observation/expectant management. She is seen for a follow-up visit. She has been feeling good generally. She has good energy and activity tolerance. ECOG score is 0. Her appetite is good. She has no fever or night sweats. She has just occasional hot flashes. She has no shortness of breath, cough, or chest pain. She has no GI/ complaints other than some urinary frequency and nocturia. Recently she had some pain in the low back and pelvic area. She did see a chiropractor and that seems to be better. She has no other joint or bone pain. She has not been having any claudication pain. She has no focal neurologic symptoms. Medications: Aspirin 1 Tablet (of 81 mg) Oral daily, Atorvastatin Calcium 1 Tablet (of 20 mg) Oral daily, EQL [place] 3 Fish Oil 1 Capsule (of 1200 mg) Oral daily, Magnesium 1 Capsule (of 400 mg) Oral daily, Multivitamin Adult Tablet Oral daily, Selenium 1 Capsule Oral daily, Vitamin D3 1 Capsule (of 5000 Units) Oral daily, YL Vitamin C 1 (1000 mg) Tablet Oral at bedtime, Zinc 1 (50 mg) Tablet Oral daily Allergies: Sulfa Review of Systems: Constitutional - She has good energy and activity tolerance. Appetite is good. She has been able to lose a little weight by dieting. No fever or night sweats. She has occasional hot flashes. ECOG score is 0, ENMT - No sinus congestion/drainage. No mouth sores. No sore throat or difficulty swallowing, Hematologic/Lymphatic - No abnormal bruising or bleeding, Respiratory - No shortness of breath. No cough. No pleuritic pain or hemoptysis, Cardiovascular - No angina pain. No palpitations, Gastrointestinal - No nausea or vomiting. No heartburn or acid reflux. No diarrhea or constipation. No blood in the stool or black stools, Genitourinary (F) - No dysuria or hematuria. No urinary frequency. She does have nocturia 3 or 4 times. No urgency or incontinence, Musculoskeletal - She recently saw a chiropractor for pain in her low back and right hip. It is getting better. No other joint or bone pain, Integumentary - No skin rash, Neurologic - No headache or dizziness. No numbness or tingling. No other focal neurologic symptoms, Psychiatric - No anxiety or depression. No insomnia. Vital Signs: Performed on Sep 23, 2020 13:02 Height - 65.00 in Weight - 177 lbs (LOW) BSA - 1.88 sq.m BMI - 29.45 Temperature - 97.6 F (LOW) Pulse - 84 /min Respiration - 16 /min BP - 139/68 mm(hg) O2 Sat - 97 % Pain - 0 Physical Examination: Constitutional - She looks good generally, Eyes - Sclerae nonicteric. Conjunctivae clear, ENMT - No lesions noted in the oral cavity, Hematologic/Lymphatic - No cervical, clavicular, or axillary adenopathy, Respiratory - Lungs are clear with good air movement bilaterally, Cardiovascular - Heart rhythm is regular. There is no murmur, gallop or rub noted, Abdomen - Mildly distended. Liver and spleen are not enlarged. There is no abdominal mass or ascites noted and there is no inguinal adenopathy, Extremities - No edema. Dorsalis pedis pulses are palpable bilaterally, Neurologic - No focal neurologic deficits noted. Lab/Imaging: Test performed on Sep 23, 2020 10:44 LDH (Total) 141 U/L Sodium 139 mmol/L Potassium 4.9 mmol/L Chloride 102 mmol/L CO2 29 mmol/L Anion Gap 12.9 BUN 14 mg/dL Creatinine 0.7 mg/dL Cr Clearance (Est) 90.4100 mL/min Glucose 87 mg/dL Osmolality - Calculated 288 mOsm/kg Calcium 9.9 mg/dL Protein, Total 6.9 g/dL Albumin 4.4 g/dL Globulin 2.5 g/dL Bilirubin, Total 0.3 mg/dL ALT (SGPT) 23 U/L AST (SGOT) 19 U/L Alkaline Phosphatase 83 IU/L WBC 6.9 10 3/uL RBC 5.08 10 6/uL HGB 13.8 g/dL HCT 45.1 % MCV 88.8 fL MCH 27.2 pg MCHC 30.6 g/dL RDW 14.6 % Platelet Count 223 10 3/cmm MPV 9.8 fL Neutrophils 4.58 10 3/uL Lymphocytes 1.6 10 3/uL Monocytes 0.5 10 3/uL Eosinophils 0.2 10 3/uL Basophils 0.0 10 3/uL Neutrophil % 66.8 % Lymphocyte % 22.9 % Monocyte % 6.7 % Eosinophil % 2.6 % Basophils % 0.6 % NRBC % 0 % Impression: 1. Patient with large B-cell lymphoma, non-terminal center type, involving a left axillary lymph node. The pathology report indicated that evaluation was limited due to the small size of the specimen. The tumor cells were noted to be CD20 positive and CD30 positive. Her disease appeared to be stage I, as there were no other areas of involvement noted on staging PET/CT. 2. She he was treated with 4 cycles of R-CHOP chemotherapy, completed on 12/21/2018. 3. She was then given consolidation radiation to the left axilla. Treatment was completed on 02/14/2019 to a total dose of 4000 cGy. 4. Restaging PET/CT on 05/13/2019 showed residual left axillary lymph node with central calcification with FDG activity less than that of mediastinal background, consistent with treated malignancy. 5. During follow-up she was found to have evidence of peripheral arterial disease. She underwent atherectomy/balloon angioplasty to the right superficial femoral artery on 03/19/2020. She has been followed on observation/expectant management following completion of the consolidation radiation. During follow-up she has been doing well clinically with no evidence of recurrence/progression of the lymphoma. Plan: She remains on observation/expectant management. She will be scheduled for a follow-up visit in 6 months. Signed By: Harry Mcintosh M.D. <<Signature on File>>
== END 2020-09-23 10:14 | disposition home or self-care (01) ==
PROVIDERS: PCP Nurse Practitioner Family; Visit Provider Internal Medicine Medical Oncology
DX: Z08 Encounter for follow-up examination after completed treatment for malignant neoplasm (principal); Z85.72 Personal history of non-Hodgkin lymphomas; I73.9 Peripheral vascular disease, unspecified; Z92.3 Personal history of irradiation; Z92.21 Personal history of antineoplastic chemotherapy; Z23 Encounter for immunization
CPT/HCPCS: 36415; 80053; 83615; 85025; 90471; 90686; G0463

== ENCOUNTER → 2020-11-21 13:08 | Outpatient (BNVA) | payer MEDICARE, SELFPAY | PROVIDERS: PCP Nurse Practitioner Family; Visit Provider Nurse Practitioner | DX: R35.0 Frequency of micturition (principal) | CPT/HCPCS: 81000; 87086 ==

== ENCOUNTER 2021-03-24 11:14 | Outpatient (CLI) | payer MEDICARE, SELFPAY ==
--- NOTE | 2021-03-24 11:25 | CT_ITS ---
WS: [id number] CT CHEST, ABDOMEN, AND PELVIS TECHNIQUE: Contrast-enhanced CT of the chest, abdomen, and pelvis with coronal and sagittal reformatt ed images. CLINICAL INFORMATION: LYMPHOMA COMPARISON: CT January 22, 2020 and PET/CT May 13, 2019 DLP: 1825.[address] scans at [facility] use at least one of these dose optimization techniques: automat ed exposure control; mA and/or kV adjustment per patient size (includes targeted exams where dose is matched to clinical indication); or iterative reconstruction. CT CHEST: Both lungs are well aerated. No acute pulmonary infiltrates. No suspicious pulmonary parenchymal opac ities. No focal pneumonia or pleural fluid. A few calcified granulomas. Aortic calcification. Proxima l main pulmonary arteries are normal. No mediastinal or hilar lymphadenopathy. Coronary calcification . No axillary lymphadenopathy. Heterogeneous nodular thyroid bilaterally. CT ABDOMEN AND PELVIS: Diffuse fatty infiltration liver. Splenic granulomas. Normal GE junction. Fatty atrophy of the pancre as. Adrenal glands are normal. Normal renal parenchymal enhancement. No hydronephrosis. Sigmoid diverticulosis. No evidence of high-grade small or large bowel obstruction. No abdominal or p elvic lymphadenopathy. No inguinal lymphadenopathy. Mild hypertrophic changes thoracic spine. CT/CT chest abd pel w con* IMPRESSION: 1. No evidence recurrent or progressed disease in the chest abdomen or pelvis. 2. No adenopathy in the chest abdomen or pelvis. 3. Both lungs are well aerated. No acute pulmonary infiltrates. 4. Diffuse fatty infiltration liver. 5. Prior cholecystectomy. 6. Small bilateral thyroid nodules.
[2021-03-24 12:19] LABS: Basophils # 0.1 10^3/uL (0.0-0.1); Basophils % 0.9 %; Eosinophils # 0.1 10^3/uL (0.0-0.8); Eosinophils % 2.1 %; Hematocrit 43.1 % (37.0-47.0); Hemoglobin 13.3 g/dL (11.5-15.3); Lymphocytes # 1.8 10^3/uL (0.8-4.8); Lymphocytes % 31.9 %; Mean Corpuscular HGB Conc 30.9 g/dL (30.0-36.0); Mean Corpuscular Hemoglobin 27.1 pg (28.0-34.0); Mean Corpuscular Volume 87.8 fL (81-99); Monocytes # 0.3 10^3/uL (0.2-0.9); Monocytes % 5.8 %; Neutrophils # 3.36 10^3/uL (1.8-7.7); Neutrophils % 59.1 %; Nucleated Red Blood Cells % 0 %; Platelet Count 237 10^3/cmm (130-400); Red Blood Count 4.91 10^6/uL (4.1-5.3); Red Cell Distribution Width 14.5 % (12.1-15.1); White Blood Count 5.7 10^3/uL (4.0-10.0)
[2021-03-24 12:25] LABS: Alanine Aminotransferase 17 U/L (0-33); Albumin Level 4.5 g/dL (3.5-5.2); Alkaline Phosphatase 71 IU/L (35-105); Anion Gap 13.3 (5-19); Aspartate Amino Transferase 16 U/L (0-32); Blood Urea Nitrogen 16 mg/dL (8-23); Calcium 9.1 mg/dL (8.5-10.5); Carbon Dioxide 29 mmol/L (22-29); Chloride 106 mmol/L (98-107); Globulin 2.6 g/dL (1.3-4.6); Glucose 103 mg/dL (65-115); Lactate Dehydrogenase 163 U/L (135-214); Osmolality Calculated 299 mOsm/kg (285-295); Potassium 4.3 mmol/L (3.5-5.1); Sodium 144 mmol/L (136-145); Total Bilirubin 0.5 mg/dL (0.15-1.2); Total Protein 7.1 g/dL (6.6-8.7)
[2021-03-24] MEDS: iohexol 300 mg/mL 100 mL Btl IV (13:07)
== END 2021-03-24 11:15 | disposition home or self-care (01) ==
LOC: RAD 11:21
PROVIDERS: PCP Nurse Practitioner Family; Visit Provider Internal Medicine Medical Oncology
DX: C83.34 Diffuse large B-cell lymphoma, lymph nodes of axilla and upper limb (principal); E04.2 Nontoxic multinodular goiter; Z90.49 Acquired absence of other specified parts of digestive tract; K76.0 Fatty (change of) liver, not elsewhere classified
CPT/HCPCS: 36415; 71260; 74177; 80053; 83615; 85025

== ENCOUNTER 2021-03-27 12:59 | Outpatient (CLI) | payer MEDICARE, SELFPAY ==
[2021-03-27 14:34] LABS: Cholesterol 102 mg/dL (0-200); HDL Cholesterol 34 mg/dL (60-100); LDL Cholesterol Calculated 51 mg/dL (50-129); Triglycerides 87 mg/dL (0-150)
--- NOTE | 2021-03-30 13:22 | ONC FU_ITS ---
Dr. Mcintosh Patient Follow-Up Note Patient: Kita Carlos Unit #: [id number]: [id number] Dicatated By: Harry Mcintosh M.D.Date of Visit:March 27, 2021 Onc Med Follow-up/Prog Note Chief Complaint: Lymphoma. History of Present Illness: This is a 71 year-old woman with large B-cell lymphoma, non-germinal center type. She presented with a left axillary mass, first noted around April of this year. She had evaluation with bilateral diagnostic mammogram with left breast ultrasound on 08/23/2018. Mammogram showed scattered fibroglandular densities bilaterally. Increased soft tissue thickness and fatty density was noted in the area of the palpable lesion, which was at the edge of the field of view along the left axillary tail. Ultrasound showed a well-circumscribed large round hypoechoic mass lesion within the left axilla measuring 4.4 x 4.1 x 3.7 cm. An adjacent enlarged nodule or lymph node measured 1.0 x 0.6 cm. She underwent ultrasound-guided core biopsy of the mass on 08/29/2018. Pathology was consistent with large B-cell lymphoma, non-germinal center type. By IHC, the tumor cells were noted to express CD20, BCL-6, MU M1, CD30, and BCL-2. They were noted to have lack of CD10 expression. CD23 showed focal positivity within neoplastic cells. Ki-67 proliferation index was high at 90%. Staging PET/CT on 09/22/2018 showed FDG avid 4.5 cm mass in the left axilla, SUV 21.4. There were no other areas of malignancy identified. There was mild FDG activity present within normal-sized bilateral inguinal lymph nodes, maximum SUV 2.8. I had seen her initially on 09/27/2018. In the presence of a CD30 positive lymphoma, I had consulted with Dr. Nette Ayala at [facility]. There was no active clinical trial available. She indicated that in a similar patient she would treat with 4 cycles of R-CHOP chemotherapy, and that in the setting of a negative PET/CT after 2 cycles, she would defer consolidation radiation. She underwent treatment with 4 cycles of R-CHOP chemotherapy from 10/19/2018 through 12/21/2018. Her restaging PET/CT prior to the 4th cycle showed a solitary left axillary lymph node measuring 1.4 x 2.4 cm of SUV 1.9 compared to 4.5 cm with SUV 21 on the pretreatment study. Given the mild residual activity on the restaging PET/CT, I did recommend consolidation radiation. She completed treatment on 02/07/2019 to a total dose of 4000 cGy. Restaging PET/CT on 05/13/2019 showed a left axillary lymph node with central calcification with FDG activity less than that of mediastinal background, consistent with treated malignancy. There was no evidence for active recurrent lymphoma. With those findings, she was followed on observation/expectant management. She has otherwise been in good health. During follow-up she was found to have evidence of peripheral arterial disease. She underwent atherectomy/balloon angioplasty of the right superficial femoral artery on 03/19/2020. She has no other ongoing medical illnesses. Other surgeries include hysterectomy/bilateral salpingo-oophorectomy, cholecystectomy, and cataract excisions. She has history of smoking 1/2 pack of cigarettes daily for 15 years. She quit smoking in March 2018. INTERIM HISTORY: Surveillance CT scans of the chest, abdomen, and pelvis on 01/22/2020 showed no significant adenopathy or acute findings. She continued on observation/expectant management. Her surveillance CT scans on 03/24/2021 showed no adenopathy or other evidence of recurrent or progressed disease in the chest, abdomen, or pelvis. There was evidence for diffuse fatty infiltration of the liver and she also was noted to have small bilateral thyroid nodules. She is seen for a follow-up visit. She has been feeling good generally. Her energy has been okay. She has normal activity. ECOG score is 0. Her appetite is good. She has not had fever. From September through December she was having episodes of pretty severe hot flashes and whole body sweating which occurred both during the daytime and at night. Those seem to have resolved now. She has had some intermittent mild discomfort in the area of the left axilla. She does not complain of shortness of breath, cough, or chest pain. She has no GI or complaints. She also has had pain occasionally in the groin area on either side. She has no other joint or bone pain. She does not complain of headache or dizziness. She has no focal neurologic symptoms. Medications: Aspirin 1 Tablet (of 81 mg) Oral daily, Atorvastatin Calcium 1 Tablet (of 20 mg) Oral daily, EQL [place] 3 Fish Oil 1 Capsule (of 1200 mg) Oral daily, Magnesium 1 Capsule (of 400 mg) Oral daily, Multivitamin Adult Tablet Oral daily, Selenium 1 Capsule Oral daily, Vitamin D3 1 Capsule (of 5000 Units) Oral daily, YL Vitamin C 1 (1000 mg) Tablet Oral at bedtime, Zinc 1 (50 mg) Tablet Oral daily Allergies: Sulfa Vital Signs: Performed on March 27, 2021 14:38 Height - 65.00 in Weight - 182 lbs (HIGH) BSA - 1.90 sq.m BMI - 30.29 (HIGH) Temperature - 98.8 F Pulse - 76 /min Respiration - 18 /min BP - 156/81 mm(hg) (HIGH) O2 Sat - 97 % Pain - 0 Fatigue - 0 Physical Examination: Constitutional - She looks good generally, Eyes - Sclerae nonicteric. Conjunctivae clear, ENMT - No lesions noted in the oral cavity, Hematologic/Lymphatic - No cervical, clavicular, or axillary adenopathy, Respiratory - Lungs are clear with good air movement bilaterally, Cardiovascular - Heart rhythm is regular. There is no murmur, gallop or rub noted, Abdomen - Soft. Liver and spleen are not enlarged. There is no abdominal mass or ascites noted and there is no inguinal adenopathy, Extremities - No edema. Dorsalis pedis pulses are palpable bilaterally, Neurologic - No focal neurologic deficits noted. Lab/Imaging: CBC shows hemoglobin 13.3 g, white blood cell count 5700, and platelet count 237,000. Comprehensive metabolic profile is unremarkable. LDH is normal at 163 U/L. Problem List: 1. Patient with large B-cell lymphoma, non-terminal center type, involving a left axillary lymph node. The pathology report indicated that evaluation was limited due to the small size of the specimen. The tumor cells were noted to be CD20 positive and CD30 positive. Her disease appeared to be stage I, as there were no other areas of involvement noted on staging PET/CT. 2. During follow-up she was found to have evidence of peripheral arterial disease. She underwent atherectomy/balloon angioplasty to the right superficial femoral artery on 03/19/2020. Problems Addressed with this Encounter and Plan: Patient with large B-cell lymphoma, non-terminal center type, involving a left axillary lymph node. The pathology report indicated that evaluation was limited due to the small size of the specimen. The tumor cells were noted to be CD20 positive and CD30 positive. Her disease appeared to be stage I, as there were no other areas of involvement noted on staging PET/CT. She he was treated with 4 cycles of R-CHOP chemotherapy, completed on 12/21/2018. She was then given consolidation radiation to the left axilla. Treatment was completed on 02/14/2019 to a total dose of 4000 cGy. Restaging PET/CT on 05/13/2019 showed residual left axillary lymph node with central calcification with FDG activity less than that of mediastinal background, consistent with treated malignancy. She has been on expectant management following completion of the consolidation radiation. Overall she has been doing very well clinically, thus far with no evidence of recurrence/progression of the lymphoma. She remains on observation/expectant management. She will be scheduled for a follow-up visit in 6 months. Signed By: Harry Mcintosh M.D. <<Signature on File>>
== END 2021-03-27 13:00 | disposition home or self-care (01) ==
PROVIDERS: PCP Nurse Practitioner Family; Visit Provider Internal Medicine Medical Oncology
DX: Z08 Encounter for follow-up examination after completed treatment for malignant neoplasm (principal); C83.34 Diffuse large B-cell lymphoma, lymph nodes of axilla and upper limb; I73.9 Peripheral vascular disease, unspecified; Z79.899 Other long term (current) drug therapy; Z92.21 Personal history of antineoplastic chemotherapy; Z92.3 Personal history of irradiation
CPT/HCPCS: 80061; G0463

== ENCOUNTER 2021-05-14 12:50 | Emergency (ER) | payer MEDICARE, SELFPAY ==
[2021-05-14 13:56] VITALS: BP 183/81; PULSE 62; RESP 18; TEMP 36.8; O2SAT 97; BMI 30.4
[2021-05-14 14:58] VITALS: BP 175/89; PULSE 59; RESP 18; O2SAT 97
[2021-05-14] MEDS: ketorolac 30 mg/mL INJ IM (15:19)
[2021-05-14] MEDS: dexamethasone 10 mg/mL INJ IM (15:19)
[2021-05-14] MEDS: diazePAM 2 mg Tablet PO (15:33)
[2021-05-14 15:52] LABS: Add Urine Microscopic? NO; Charge for UA Resulting for Rev
[2021-05-14 15:53] LABS: Bilirubin Urine Neg (Negative); Blood Urine Neg (Negative); Glucose Urine UA Norm (Normal); Ketones Urine Negative (Negative); Leukocyte Esterase Urine Negative (Negative); Nitrate Urine Negative (Negative); Protein Urine Neg (Negative); Urine Appearance Clear (CLEAR); Urine Color Yellow (Yellow); Urobilinogen Urine Norm (Negative); pH Urine 6 (5-7)
--- NOTE | 2021-05-14 17:10 | W.ED.BACK ---
HPI - Back Pain/Injury General: Chief Complaint: Back Pain/Injury Stated Complaint: Back pain Time Seen by Provider: 05/14/21 13:21 Source: patient Mode of arrival: ambulatory Limitations: no limitations History of Present Illness: HPI Narrative: 71 yo female patient present to ER with chronic back pain x 2 years with a flare up lasating 2 months. 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 pt c/o buring down right leg. pt denbies any fever, iv drug abuse loss of bowel or bladder. deneis any urinary symptoms Associated symptoms: Deny abdominal pain, chills, change in bowel habits, difficulty walking, dysuria, fatigue, fever(s), hematuria, nausea, syncope, urinary urgency or vomiting Review of Systems Const: Denies: fever(s), chills, body aches, change in appetite, change in weight, fatigue, malaise or diaphoresis Eyes: Denies: change in vision, blurry vision, blind spots, photophobia, eye discomfort, eye discharge, eye redness, floaters or seeing flashes ENMT: Denies: throat pain, uvular edema, enlarged tonsils, odynophagia, hoarseness, mouth pain, swelling of lips/tongue, oral sores, bleeding gums, dental pain, dry mouth, ear or mastoid pain, ear discharge, change in hearing, tinnitus, disequilibrium, nasal discharge, nasal congestion, post nasal drip or sinus pain Card: Denies: chest pain, palpitations, irregular heart rhythm, edema, swelling of feet/ankles, lightheadedness, syncope, pre-syncope, dyspnea on exertion, orthopnea, leg pain with exertion or acrocyanosis Resp: Denies: dyspnea, productive cough, non-productive cough, wheezing, stridor, pain on inspiration, change in phlegm color, hemoptysis or chest congestion GI: Denies: abdominal pain, nausea, vomiting, hematemesis, dysphagia, diarrhea, constipation, GI cramping, change in bowel habits or rectal pain : Denies: flank pain, difficulty voiding, dysuria, urinary frequency, urinary urgency, urinary hesitancy or hematuria Musc: Reports: back pain; Denies: neck pain, extremity pain, extremity swelling, joint pain, joint swelling, joint redness, joint warmth or deformity Skin/Breast: Denies: rash, pruritus, erythema, sores, new lesions, changes in skin color or dry skin Neuro: Denies: headache(s), numbness in extremities, weakness in extremities, sensory changes, lack of coordination, difficulty walking, frequent falls, dizziness, vertigo, confusion, behavioral changes, Slurred speech present, difficulty communicating thoughts or seizure-like activity Psych: Denies: anxiety, depression, suicidal ideation or homicidal ideation Endo: Denies: polyuria, polydipsia, tired all the time, cold intolerance, excessive sweating, flushing, hot flashes or heat intolerance Heath/Lymph: Denies: easy bruising, easy bleeding, petechiae, purpura, enlarged lymph nodes or tender lymph nodes All/Imm: Denies: urticaria, throat swelling, tongue swelling, facial swelling, acute wheezing or itchy eyes PFSH ED PFSH: Medical History Claudication of both lower extremities HTN (hypertension), benign Lymphoma in remission Peripheral vascular disease Surgical History S/P cataract extraction S/P cholecystectomy S/P hysterectomy Family History Father Hypertension Mother Stroke Social History Smoking and tobacco status: former smoker Female Reproductive History: Date of last menstrual period: 03/19/20 Physical Exam Const: COMMON NORMALS: no acute distress, patient oriented x3, healthy appearing, alert and well nourished GENERAL APPEARANCE: cooperative, comfortable, well kempt and well developed; not ill appearing ORIENTATION/CONSCIOUSNESS: Yes awake, Yes oriented to person, Yes oriented to place and Yes oriented to time HENMT: COMMON NORMALS: normocephalic, atraumatic, hearing grossly normal bilaterally, external ears normal, EAC's normal, TM's normal bilaterally, Normal external nose present, Normal nasal mucous membranes and turbinates present and moist oral mucous membranes HEAD & SCALP: normal to inspection, normocephalic and atraumatic FACE & SINUS: normal facial exam, sinuses nontender and face symmetric NOSE: Normal external nose present, Normal nares present, Normal nasal mucous membranes and turbinates present, No nasal discharge present and Abnormal external nose present EXTERNAL EAR: Yes external ears normal and Yes mastoids normal EXTERNAL AUDITORY CANAL: EAC's normal TYMPANIC MEMBRANE: TM's normal bilaterally MOUTH: Normal oral and palatal mucosa present, lip normal, tongue normal and Normal salivary glands and ducts present THROAT: no uvular edema Eye: COMMON NORMALS: Equal, round and reactive pupils present, EOMs intact bilaterally, conjunctivae normal, no scleral icterus and no papilledema GENERAL EYE: appearance normal, both eyes and all related structures EYELID: eyelids normal CONJUNCTIVA: Yes conjunctivae normal SCLERA: sclerae normal CORNEA: Yes corneas normal PUPIL: Yes Equal, round and reactive pupils present DIRECT OPHTHALMOSCOPY: Yes no papilledema Neck/C-Spine: COMMON NORMALS: full ROM, no lymphadenopathy, supple, no meningeal signs, no JVD and Thyroid normal GENERAL: Yes normal visual inspection and Yes trachea midline THYROID: Thyroid normal CERVICAL SPINE: Yes cervical ROM normal Lymph: LYMPHATIC: no lymphadenopathy noted and no lymphedema noted Chest: COMMONS NORMALS: normal inspection of the chest and normal palpation of entire chest wall Resp: COMMON NORMALS: normal respiratory effort, No retractions, No use of accessory muscles and clear to auscultation bilaterally EFFORT & INSPECTION: Yes able to speak in complete sentences and Yes symmetric chest movement AUSCULTATION: clear to auscultation bilaterally Cardio: COMMON NORMALS: no JVD, regular rate and regular rhythm RATE: regular rate RHYTHM: regular rhythm GI: COMMON NORMALS: Normal to inspection, nondistended, normoactive bowel sounds present, Soft to palpation, non-tender, No hepatosplenomegaly present, no masses and no bruits INSPECTION: Yes normal to inspection AUSCULTATION: Yes normoactive bowel sounds PALPATION: Yes Soft to palpation and Yes No hepatosplenomegaly present PERCUSSION: normal to percussion RECTAL EXAM: deferred : COMMON NORMALS: Yes no CVA tenderness, Yes normal external appearance, Yes normal appearance of the vagina, Yes normal appearance of the cervix, Yes normal bimanual exam, Yes No adnexal tenderness and Yes no masses BLADDER/KIDNEY EXAM: Yes no CVA tenderness BIMANUAL EXAM - VAGINA & UTERUS: Yes normal bimanual exam Back/Pelvis: COMMON NORMALS: no CVA tenderness, thoracic and lumbar spine normal to inspection, no thoracic nor lumbar tenderness, thoraco-lumbar ROM normal and straight leg raise negative bilaterally THORACIC SPINE/UPPER BACK: Yes normal to inspection LUMBAR SPINE/LOWER BACK: Yes normal to inspection, No lumbar spinal tenderness and Yes paraspinal muscle tenderness Lumbar paraspinal muscle tenderness: right Extremity: COMMON NORMALS: normal to inspection, full ROM and capillary refill normal GENERAL: Yes normal exam except as noted Neuro: COMMON NORMALS: patient oriented x3, CN's II-XII intact bilaterally, moves all extremities, no focal motor deficits, no sensory deficits noted, deep tendon reflexes 2+ bilaterally and gait normal SENSORIUM/ORIENTATION: Yes alert, Yes oriented to person, Yes oriented to place and Yes oriented to time MENINGEAL SIGNS: Yes no meningeal signs CRANIAL NERVES: Yes CN normal except as noted SPEECH: speech normal GAIT: Yes Normal gait present SENSORY EXAM: Yes extremities MOTOR EXAM: 5/5 motor strength present throughout Psych: COMMON NORMALS: mental status grossly normal, Normal thought process present, cooperative, normal affect, speech normal, activity/motor behavior normal, denies hallucinations, denies homicidal ideation and denies suicidal ideation APPEARANCE: Yes grossly normal and Yes well kempt ATTITUDE: Yes calm ACTIVITY/MOTOR BEHAVIOR: Yes appropriate eye contact SPEECH: Yes normal speech THOUGHT PROCESS: Normal thought process present THOUGHT CONTENT: Yes Normal thought content present ATTENTION/CONCENTRATION: Yes attention grossly intact MEMORY/COGNITION: Yes memory grossly intact INSIGHT: Good insight present (Psych) JUDGEMENT: Good judgement present (Psych) Skin: COMMON NORMALS: no rashes or lesions noted, no wounds, turgor normal, no jaundice, no petechiae and no mottling GENERAL SKIN EXAM: no rashes or lesions noted and turgor normal Course Vital Signs: Vital signs: Vital Signs Temperature 98.2 F 05/14/21 13:56 Pulse Rate 59 L 05/14/21 14:58 Respiratory Rate 18 05/14/21 14:58 Blood Pressure 175/89 05/14/21 14:58 Pulse Oximetry 97 05/14/21 14:58 MDM - Back Pain/Injury MDM Narrative: Medical decision making narrative: PT is well appearing non toxic and in no acute distress. 71 yo female patient present to ER with chronic back pain x 2 years with a flare up lasating 2 months. 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 pt c/o buring down right leg. pt denbies any fever, iv drug abuse loss of bowel or bladder. deneis any urinary symptoms Pt states she has been told she has scitica and went to chiropractor and it did help. Pt was given decadron and valium here and states her pain is much better. Pt did not have any blood in urine and no evidence of infection. Pt has been advised of return precautions as well as home care. I will send patienthome with short course of valium. I offerred patient ct of abd pelvis to rule out kidney stone but patient refuses this and states she knows that is not what is wrong. Lab Data: Labs: Lab Results 05/14/21 Range/Units 15:32 Urine Color Yellow (Yellow) Urine Appearance Clear (CLEAR) Urine pH 6 (5-7) Ur Specific Gravit y 1.010 (1.005-1.030) Urine Protein Neg (Negative) Urine Glucose (UA) Norm (Normal) Urine Ketones Negative (Negative) Urine Blood Neg (Negative) Urine Nitrate Negative (Negative) Urine Bilirubin Neg (Negative) Urine Urobilinogen Norm (Negative) mg/dL Ur Leukocyte Tatyana ase Negative (Negative) Discharge Plan Discharge Patient Disposition: Home Clinical Impression: Lumbar radiculopathy Sciatica Qualifiers: Laterality: right Qualified Code(s): M54.31 - Sciatica, right side Condition: Stable Prescriptions: New Valium 2 mg tablet 1 mg PO TID PRN (Reason: muscle spasticity) Qty: 14 RF: 0 No Action nitrofurantoin macrocrystal 100 mg capsule 100 mg PO BID 7 Days Qty: 14 RF: 0 phenazopyridine [Pyridium] 200 mg tablet 200 mg PO TID Qty: 6 RF: 0 methylprednisolone [Medrol (Fidencio)] 4 mg tablets,dose pack See Rx Instructions PO PER PKG DIR Qty: 21 RF: 0 baclofen 5 mg tablet 5 mg PO TID Qty: 14 RF: 0 multivitamin Tablet 1 tab PO DAILY RF: 0 selenium 200 mcg capsule 200 mcg PO DAILY RF: 0 omega-3 fatty acids [Fish Oil Concentrate] 1,000 mg capsule 2,100 mg PO DAILY RF: 0 atorvastatin 20 mg tablet 20 mg PO DAILY Qty: 90 RF: 3 clopidogrel 75 mg Tablet 75 mg PO DAILY Qty: 90 RF: 0 aspirin 81 mg Tablet,Delayed Release (Dr/Ec) 81 mg PO DAILY Qty: 30 RF: 3 Discharge Orders: Discharge ED (Routine); Ordered 05/14/21 Ordered By: Chloe Pemberton Referrals: Christel Yuen APN [Primary Care Provider] - Discharge Diet: Advance as tolerated Discharge Activity: Increase activity as tolerated Patient Instructions: Opioid Safety Activity Restrictions/Additional Instructions: Please take meds as prescribed Please return to ER with fever, loss of bowel or bladder, any new or worsening symptoms Coding Level of Care Code ED [employer] Supervisor for Shira Staton
== END 2021-05-14 17:15 | disposition home or self-care (01) ==
PROVIDERS: Emergency Provider Registered Nurse; PCP Nurse Practitioner Family
DX: M54.16 Radiculopathy, lumbar region (principal); M54.31 Sciatica, right side; Z79.02 Long term (current) use of antithrombotics/antiplatelets; Z79.82 Long term (current) use of aspirin; I10 Essential (primary) hypertension; Z85.72 Personal history of non-Hodgkin lymphomas; Z87.891 Personal history of nicotine dependence
CPT/HCPCS: 81003; 96372; 99283; J1100; J1885

== ENCOUNTER → 2021-06-05 14:25 | Outpatient (BNVA) | payer MEDICARE, SELFPAY | PROVIDERS: PCP Nurse Practitioner Family; Visit Provider Nurse Practitioner Family | DX: N30.01 Acute cystitis with hematuria (principal) | CPT/HCPCS: 81003; 87077; 87086; 87184 ==

== ENCOUNTER → 2021-08-22 11:26 | Outpatient (BNVA) | payer MEDICARE, SELFPAY | PROVIDERS: PCP Family Medicine; Visit Provider Nurse Practitioner Family | DX: M54.41 Lumbago with sciatica, right side (principal); N30.01 Acute cystitis with hematuria | CPT/HCPCS: 81003; 87077; 87086; 87184 ==

== ENCOUNTER 2021-08-29 10:45 | Outpatient (CLI) | payer MEDICARE, SELFPAY ==
--- NOTE | 2021-08-29 10:54 | XR_ITS ---
WS: [id number] LUMBAR SPINE: 6 VIEWS TECHNIQUE: AP, lateral, and L5-S1 spot. Lateral views in neutral, flexion and extension. HISTORY: M54.41 - Lumbago with sciatica, right side COMPARISON: None available. L4 anterolisthesis by 5 mm. With flexion and extension the anterolisthesis does not change significan tly. There is disc space narrowing throughout the lumbar spine but most significant at L3-4 and L5-S1 . Facet joint arthritis moderate at L4-5 and L5-S1. Pedicles are all identified. Endplate hypertrophic osteophytes are mild to moderate throughout the ivy mbar spine. SI joints are symmetric bilaterally. No soft tissue abnormalities. Prior cholecystectomy. XR/XR lumbar spine min 4V [id number] IMPRESSION: 1. L4 anterolisthesis by 5 mm. No significant instability with flexion or exte nsion. 2. Facet joint arthritis is moderate L4-5 and L5-S1. 3. Most significant degenerative disc space narrowing is at L3-4 and L5-S1.
== END 2021-08-29 10:46 | disposition home or self-care (01) ==
PROVIDERS: PCP Family Medicine; Visit Provider Nurse Practitioner Family
DX: M54.41 Lumbago with sciatica, right side (principal); M47.816 Spondylosis without myelopathy or radiculopathy, lumbar region; M47.817 Spondylosis without myelopathy or radiculopathy, lumbosacral region
CPT/HCPCS: 72110

== ENCOUNTER → 2021-09-10 09:38 | Outpatient (BNVA) | payer MEDICARE, SELFPAY | PROVIDERS: PCP Family Medicine; Referring Provider Nurse Practitioner Family; Visit Provider Anesthesiology Pain Medicine | DX: G89.29 Other chronic pain (principal); M51.16 Intervertebral disc disorders with radiculopathy, lumbar region; M47.816 Spondylosis without myelopathy or radiculopathy, lumbar region; M25.551 Pain in right hip; M25.552 Pain in left hip | CPT/HCPCS: 99204 ==

== ENCOUNTER 2021-09-23 11:19 | Outpatient (CLI) | payer MEDICARE, SELFPAY ==
[2021-09-23 12:02] LABS: Basophils % 0.7 %; Eosinophils # 0.1 10^3/uL (0.0-0.8); Eosinophils % 2.1 %; Hematocrit 43.2 % (37.0-47.0); Hemoglobin 13.4 g/dL (11.5-15.3); Lymphocytes # 1.6 10^3/uL (0.8-4.8); Lymphocytes % 26.4 %; Mean Corpuscular Hemoglobin 27.6 pg (28.0-34.0); Mean Corpuscular Volume 88.9 fl (81-99); Mean Platelet Volume 10.1 fL (7.4-10.4); Monocytes # 0.4 10^3/uL (0.2-0.9); Monocytes % 5.7 %; Neutrophils # 3.97 10^3/uL (1.8-7.7); Neutrophils % 64.8 %; Nucleated Red Blood Cells % 0 %; Platelet Count 217 10^3/cmm (130-400); Red Blood Count 4.86 10^6/uL (4.1-5.3); Red Cell Distribution Width 13.9 % (12.1-15.1); White Blood Count 6.1 10^3/uL (4.0-10.0)
[2021-09-23 12:25] LABS: Alanine Aminotransferase 14 U/L (0-33); Albumin Level 4.2 g/dL (3.5-5.2); Alkaline Phosphatase 65 IU/L (35-105); Anion Gap 9.8 (5-19); Aspartate Amino Transferase 16 U/L (0-32); Blood Urea Nitrogen 17 mg/dL (8-23); Calcium 9.2 mg/dL (8.5-10.5); Carbon Dioxide 30 mmol/L (22-29); Chloride 106 mmol/L (98-107); Globulin 2.5 g/dL (1.3-4.6); Glucose 108 mg/dL (65-115); Lactate Dehydrogenase 168 U/L (135-214); Osmolality Calculated 294 mOsm/kg (285-295); Potassium 4.8 mmol/L (3.5-5.1); Sodium 141 mmol/L (136-145); Total Bilirubin 0.4 mg/dL (0.15-1.2); Total Protein 6.7 g/dL (6.6-8.7)
[2021-09-23 12:26] LABS: Chol HDL Ratio 2.45 mg/dL (0.0-4.40); Cholesterol 93 mg/dL (0-200); HDL Cholesterol 38 mg/dL (60-100); LDL Cholesterol Calculated 40 mg/dL (50-129); LDL HDL Ratio 1.05 RATIO (0.00-3.22); Triglycerides 75 mg/dL (0-150)
--- NOTE | 2021-09-25 07:55 | ONC FU_ITS ---
Dr. Mcintosh Patient Follow-Up Note Patient: Kita Carlos Unit #: [id number]: [id number] Dicatated By: Hrary Mcintosh M.D.Date of Visit:Sep 23, 2021 Onc Med Follow-up/Prog Note Chief Complaint: Lymphoma. History of Present Illness: This is a 71 year-old woman with large B-cell lymphoma, non-germinal center type. She presented with a left axillary mass. She had evaluation with bilateral diagnostic mammogram with left breast ultrasound on 08/23/2018. Mammogram showed scattered fibroglandular densities bilaterally. Increased soft tissue thickness and fatty density was noted in the area of the palpable lesion, which was at the edge of the field of view along the left axillary tail. Ultrasound showed a well-circumscribed large round hypoechoic mass lesion within the left axilla measuring 4.4 x 4.1 x 3.7 cm. An adjacent enlarged nodule or lymph node measured 1.0 x 0.6 cm. She underwent ultrasound-guided core biopsy of the mass on 08/29/2018. Pathology was consistent with large B-cell lymphoma, non-germinal center type. By IHC, the tumor cells were noted to express CD20, BCL-6, MU M1, CD30, and BCL-2. They were noted to have lack of CD10 expression. CD23 showed focal positivity within neoplastic cells. Ki-67 proliferation index was high at 90%. Staging PET/CT on 09/22/2018 showed FDG avid 4.5 cm mass in the left axilla, SUV 21.4. There were no other areas of malignancy identified. There was mild FDG activity present within normal-sized bilateral inguinal lymph nodes, maximum SUV 2.8. I had seen her initially on 09/27/2018. In the presence of a CD30 positive lymphoma, I had consulted with Dr. Nette Ayala at [facility]. There was no active clinical trial available. She indicated that in a similar patient she would treat with 4 cycles of R-CHOP chemotherapy, and that in the setting of a negative PET/CT after 2 cycles, she would defer consolidation radiation. She underwent treatment with 4 cycles of R-CHOP chemotherapy from 10/19/2018 through 12/21/2018. Her restaging PET/CT prior to the 4th cycle showed a solitary left axillary lymph node measuring 1.4 x 2.4 cm of SUV 1.9 compared to 4.5 cm with SUV 21 on the pretreatment study. Given the mild residual activity on the restaging PET/CT, I did recommend consolidation radiation. She completed treatment on 02/07/2019 to a total dose of 4000 cGy. Restaging PET/CT on 05/13/2019 showed a left axillary lymph node with central calcification with FDG activity less than that of mediastinal background, consistent with treated malignancy. There was no evidence for active recurrent lymphoma. With those findings, she was followed on observation/expectant management. She has otherwise been in good health. During follow-up she was found to have evidence of peripheral arterial disease. She underwent atherectomy/balloon angioplasty of the right superficial femoral artery on 03/19/2020. She has no other ongoing medical illnesses. Other surgeries include hysterectomy/bilateral salpingo-oophorectomy, cholecystectomy, and cataract excisions. She has history of smoking 1/2 pack of cigarettes daily for 15 years. She quit smoking in March 2018. INTERIM HISTORY: Surveillance CT scans of the chest, abdomen, and pelvis on 01/22/2020 showed no significant adenopathy or acute findings. Her surveillance CT scans on 03/24/2021 showed no adenopathy or other evidence of recurrent or progressed disease in the chest, abdomen, or pelvis. There was evidence for diffuse fatty infiltration of the liver and she also was noted to have small bilateral thyroid nodules. She continued on observation/expectant management. She is seen for a follow-up visit. She has been having significant pain in the lower back and also in the groin area bilaterally, though to a lesser extent. It is severe enough that she is having to use a walker to help her get up out of a chair. Recently the pain has not been quite as bad. She has been to pain clinic, and she is scheduled to have an MRI on . Her activity has been somewhat limited, but she is able to do light work. ECOG score is 1. Her appetite is good. She has not had fever. She occasionally has sweating at night. She has not had sore mouth or throat. She has no shortness of breath, cough, or chest pain. She has no GI complaints. She says she has had a lot of bladder infections. She does not complain of headache or dizziness, and she has no focal neurologic symptoms. Medications: Aspirin 1 Tablet (of 81 mg) Oral daily, Atorvastatin Calcium 1 Tablet (of 20 mg) Oral daily, EQL [place] 3 Fish Oil 1 Capsule (of 1200 mg) Oral daily, Magnesium 1 Capsule (of 400 mg) Oral daily, Multivitamin Adult Tablet Oral daily, Selenium 1 Capsule Oral daily, Vitamin D3 1 Capsule (of 5000 Units) Oral daily, YL Vitamin C 1 (1000 mg) Tablet Oral at bedtime, Zinc 1 (50 mg) Tablet Oral daily Allergies: Sulfa Vital Signs: Performed on Sep 23, 2021 13:21 Height - 65.00 in Weight - 183 lbs (HIGH) BSA - 1.90 sq.m BMI - 30.45 (HIGH) Temperature - 97.3 F (LOW) Pulse - 74 /min Respiration - 18 /min BP - 165/84 mm(hg) (HIGH) O2 Sat - 98 % Pain - 2 Fatigue - 0 Physical Examination: Constitutional - She looks pretty good generally, Eyes - Sclerae nonicteric. Conjunctivae clear, ENMT - No lesions noted in the oral cavity, Hematologic/Lymphatic - No cervical, clavicular, or axillary adenopathy, Respiratory - Lungs are clear with good air movement bilaterally, Cardiovascular - Heart rhythm is regular. There is no murmur, gallop or rub noted, Abdomen - Soft. Liver and spleen are not enlarged. There is no abdominal mass or ascites noted and there is no inguinal adenopathy, Extremities - No edema. Dorsalis pedis pulses are palpable bilaterally, Neurologic - No focal neurologic deficits noted. Lab/Imaging: Test performed on Sep 23, 2021 11:38 Cholesterol, Total 93 mg/dL LDH (Total) 168 U/L Sodium 141 mmol/L Potassium 4.8 mmol/L Triglycerides 75 mg/dL Chloride 106 mmol/L LDL Cholesterol 40 mg/dL CO2 30 mmol/L Anion Gap 9.8 HDL Cholesterol 38 mg/dL BUN 17 mg/dL Cholesterol/HDL Ratio 2.45 mg/dL Creatinine 0.5 mg/dL LDL / HDL Ratio 1.05 RATIO Cr Clearance (Est) 131.32 mL/min Glucose 108 mg/dL Osmolality - Calculated 294 mOsm/kg Calcium 9.2 mg/dL Protein, Total 6.7 g/dL Albumin 4.2 g/dL Globulin 2.5 g/dL Bilirubin, Total 0.4 mg/dL ALT (SGPT) 14 U/L AST (SGOT) 16 U/L Alkaline Phosphatase 65 IU/L WBC 6.1 10 3/uL RBC 4.86 10 6/uL HGB 13.4 g/dL HCT 43.2 % MCV 88.9 fl MCH 27.6 pg MCHC 31.0 g/dL RDW 13.9 % Platelet Count 217 10 3/cmm MPV 10.1 fL Neutrophils 3.97 10 3/uL Lymphocytes 1.6 10 3/uL Monocytes 0.4 10 3/uL Eosinophils 0.1 10 3/uL Basophils 0.0 10 3/uL Neutrophil % 64.8 % Lymphocyte % 26.4 % Monocyte % 5.7 % Eosinophil % 2.1 % Basophils % 0.7 % NRBC % 0 % Problem List: 1. Patient with large B-cell lymphoma, non-terminal center type, involving a left axillary lymph node. The pathology report indicated that evaluation was limited due to the small size of the specimen. The tumor cells were noted to be CD20 positive and CD30 positive. Her disease appeared to be stage I, as there were no other areas of involvement noted on staging PET/CT. 2. During follow-up she was found to have evidence of peripheral arterial disease. She underwent atherectomy/balloon angioplasty to the right superficial femoral artery on 03/19/2020. Problems Addressed with this Encounter and Plan: Patient with large B-cell lymphoma, non-terminal center type, involving a left axillary lymph node. The pathology report indicated that evaluation was limited due to the small size of the specimen. The tumor cells were noted to be CD20 positive and CD30 positive. Her disease appeared to be stage I, as there were no other areas of involvement noted on staging PET/CT. She he was treated with 4 cycles of R-CHOP chemotherapy, completed on 12/21/2018. She was then given consolidation radiation to the left axilla. Treatment was completed on 02/14/2019 to a total dose of 4000 cGy. Restaging PET/CT on 05/13/2019 showed residual left axillary lymph node with central calcification with FDG activity less than that of mediastinal background, consistent with treated malignancy. She has been on expectant management following completion of the consolidation radiation. Her surveillance CT scans in March 2021 showed no evidence of recurrence. She has since then developed significant pain in the lower back and to a lesser extent in the groin area bilaterally. She has been to pain clinic, and she is scheduled to have an MRI of the lumbar spine later this week. With her known history of lymphoma, I am going to also include the pelvis with her MRI study, I will request that it be done with and without contrast. She will have further evaluation as indicated. In the absence of any evidence of recurrence of the lymphoma, I will just plan to see her again in 6 months. Signed By: Harry Mcintosh M.D. <<Signature on File>>
== END 2021-09-23 11:20 | disposition home or self-care (01) ==
PROVIDERS: PCP Family Medicine; Visit Provider Internal Medicine Medical Oncology
DX: Z08 Encounter for follow-up examination after completed treatment for malignant neoplasm (principal); Z85.72 Personal history of non-Hodgkin lymphomas; I73.9 Peripheral vascular disease, unspecified; Z79.899 Other long term (current) drug therapy; Z92.21 Personal history of antineoplastic chemotherapy; Z92.3 Personal history of irradiation
CPT/HCPCS: 36415; 80053; 80061; 83615; 85025; 99214

== ENCOUNTER 2021-09-25 12:37 | Outpatient (CLI) | payer MEDICARE, SELFPAY ==
--- NOTE | 2021-09-25 13:00 | MR_ITS ---
WS: [id number] MRI LUMBAR SPINE NONCONTRAST TECHNIQUE: Sagittal T1, T2 and STIR imaging. Axial T1 and T2 imaging. CLINICAL INFORMATION: M51.16 - Intervertebral disc disorders with radiculopathy... COMPARISON: None. FINDINGS: Mild lumbar curve. No acute compression. Disc space narrowing L5-S1. Mild disc bulging L3-L5. L1-L2: Normal. L2-L3: Minimal annular bulging. Mild facet arthropathy. Spinal canal and foramen are patent. L3-L4: Mild disc bulging with osteophytic ridging. Slight narrowing of the right subarticular recess with mild right foraminal narrowing. Left foramen is patent. Mild facet arthropathy. L4-L5: Mild disc bulging with osteophytic ridging. Moderate facet arthropathy. Mild right and no sign ificant left foraminal narrowing. Slight narrowing of the right subarticular recess. L5-S1: Mild disc osteophytic ridging with a tiny shallow central protrusion. Slight effacement of the ventral thecal sac. Slight encroachment on the traversing S1 nerve roots. Osteophytic ridging result s in mild right foraminal narrowing. Mild facet arthropathy. Mild central canal stenosis in the cervical spine on the masseur/masseuse imaging at C3-C5. Visualized pelvic bony structures: Normal. Paravertebral soft tissues: Normal. MR/MR lumbar spine wo con* [id number] IMPRESSION: 1. Mild lumbar curve. No acute compression. No high-grade central canal stenos is. 2. Mild disc bulging L3-L4 eccentric to the right with slight narrowing of the right subarticular recess and slight contact of the exiting right L3 nerve ifeanyi t. 3. Mild disc bulging L4-5 with slight narrowing of the right subarticular rece ss and mild right L4-5 foraminal narrowing. 4. Disc osteophytic ridging L5-S1 slightly encroaches on the S1 nerve roots wi thout significant impingement. Mild right L5-S1 foraminal narrowing. 5. Moderate facet arthropathy L4-5. 6. Mild central canal stenosis in the cervical spine on the masseur/masseuse imaging at C 3-C5.
== END 2021-09-25 12:38 | disposition home or self-care (01) ==
LOC: RADSHAW 12:43
PROVIDERS: PCP Family Medicine; Visit Provider Anesthesiology Pain Medicine
DX: M51.16 Intervertebral disc disorders with radiculopathy, lumbar region (principal); M51.26 Other intervertebral disc displacement, lumbar region; M25.78 Osteophyte, vertebrae; M47.816 Spondylosis without myelopathy or radiculopathy, lumbar region; M48.02 Spinal stenosis, cervical region
CPT/HCPCS: 72148

== ENCOUNTER → 2021-09-29 09:14 | Outpatient (BNVA) | payer MEDICARE, SELFPAY | PROVIDERS: PCP Family Medicine; Visit Provider Anesthesiology Pain Medicine | DX: G89.29 Other chronic pain (principal); M47.816 Spondylosis without myelopathy or radiculopathy, lumbar region; M51.16 Intervertebral disc disorders with radiculopathy, lumbar region; M25.551 Pain in right hip; M25.552 Pain in left hip; Z87.891 Personal history of nicotine dependence | CPT/HCPCS: 99214 ==

== ENCOUNTER → 2021-10-02 14:45 | Outpatient (BNVA) | payer MEDICARE, SELFPAY | PROVIDERS: PCP Family Medicine; Visit Provider Nurse Practitioner Family | DX: N30.01 Acute cystitis with hematuria (principal); I10 Essential (primary) hypertension | CPT/HCPCS: 81000; 81003 ==

== ENCOUNTER 2021-10-07 07:58 | Outpatient (CLI) | payer MEDICARE, SELFPAY ==
--- NOTE | 2021-10-07 08:00 | MR_ITS ---
WS: [id number] MRI OF THE PELVIS WITHOUT AND WITH GADOLINIUM ENHANCEMENT. INDICATION: Lymphoma COMPARISON: Lumbar spine MRI September 25, 2021, CT March 24, [address] May 13, 2019 TECHNIQUE: MRI of the pelvis without and with gadolinium enhancement. Axial T1 and T2 and STIR imagin g. Coronal T1-T2 and STIR imaging. Sagittal T2 and postgadolinium imaging. Multiplanar post gadoliniu m imaging with fat saturation technique. FINDINGS: Prior hysterectomy. Normal bone marrow signal in the bony pelvis and both hips. No evidence of bony metastatic disease. Moderate degenerative arthritis both hips. Subchondral cystic change lef t acetabulum with a small amount of edema and enhancement consistent with degenerative arthritis. Normal bone marrow signal in the sacrum. No metastatic sacral lesions. Small amount of edema and enha ncement overlying the left greater trochanter compatible with trochanteric bursitis. Small amount of associated soft tissue edema. Trace right trochanter bursitis. Normal sigmoid colon. No pelvic or inguinal lymphadenopathy. Mild disc bulging in the lower lumbar sp ine L4-L5 and L5-S1. Normal sacrococcygeal junction. MR/MR pelvis wo/w con [id number] IMPRESSION: 1. No evidence of bony metastatic disease. 2. No pelvic or inguinal lymphadenopathy. 3. Normal bone marrow signal in the sacrum. 4. Moderate degenerative arthritis both hips with joint space narrowing. 5. Prior hysterectomy. 6. Enhancement and edema overlying the left greater trochanter compatible with trochanteric bursitis. Small amount of right trochanteric bursitis. 7. Mild disc bulging the lower lumbar spine L4-L5 and L5-S1.
== END 2021-10-07 07:59 | disposition home or self-care (01) ==
LOC: RADSHAW 07:59
PROVIDERS: PCP Family Medicine; Visit Provider Internal Medicine Medical Oncology
DX: C83.34 Diffuse large B-cell lymphoma, lymph nodes of axilla and upper limb (principal); Z90.710 Acquired absence of both cervix and uterus; R60.0 Localized edema; M51.26 Other intervertebral disc displacement, lumbar region
CPT/HCPCS: 72197; A9577

== ENCOUNTER 2022-02-13 11:31 | Outpatient (CLI) | payer MEDICARE, SELFPAY ==
--- NOTE | 2022-02-13 11:40 | MM_ITS ---
WS: [email or web address] BILATERAL SCREENING 3D TOMOSYNTHESIS DIGITAL MAMMOGRAM WITH CAD HISTORY: SCREENING COMPARISON: 08/23/2018 Bilateral CC and MLO views submitted. Computer aided detection analyzed. Breast composition: There are scattered areas of fibroglandular density. No suspicious masses, microc alcifications or architectural distortion. Benign scattered calcifications in each breast. MM/[place] [id number] IMPRESSION: BI-RADS: 2-Benign FOLLOW UP: 1 Year Follow-up
== END 2022-02-13 11:32 | disposition home or self-care (01) ==
LOC: RADSHAW 11:37
PROVIDERS: PCP Family Medicine; Visit Provider Internal Medicine Medical Oncology
DX: Z12.31 Encounter for screening mammogram for malignant neoplasm of breast (principal)
CPT/HCPCS: 77063; 77067

== ENCOUNTER 2022-02-25 15:04 | Outpatient (CLI) | payer MEDICARE, SELFPAY ==
--- NOTE | 2022-02-25 15:13 | XR_ITS ---
WS: [email or web address] SCREENING DEXA SCAN [facility] CLINICAL INFORMATION: ASYMPTOMATIC POSTMENOPAUSAL STATE COMPARISON: None. FINDINGS: The L1-L4 bone mineral density measures 1.158 g/cm2. This corresponds to a T score score of -0.2 and Z score of 1.0. Left femoral neck bone mineral density measures 0.953 g/cm2. This corresponds to a T score of -0.4 an d Z score of 0.9. Right femoral neck bone mineral density measures 0.941 g/cm2. This corresponds to a T score -0.5of an d Z score of 0.8. Mean femoral neck bone mineral density measures 0.947 g/cm2. This corresponds to a T score of -0.5 an d Z score of 0.8. XR/XR DEXA axial skeleton* [id number] IMPRESSION: Normal bone mineralization. Patient's FRAX calculated 10 year probability for major osteoporotic fracture i s 11.7 % and osteoporotic hip fracture is 2.6%.
== END 2022-02-25 15:05 | disposition home or self-care (01) ==
LOC: RAD 15:05
PROVIDERS: PCP Family Medicine; Visit Provider Internal Medicine Medical Oncology
DX: Z78.0 Asymptomatic menopausal state (principal)
CPT/HCPCS: 77080

== ENCOUNTER → 2022-05-04 10:18 | Outpatient (BNVA) | payer MEDICARE, SELFPAY | PROVIDERS: PCP Family Medicine; Visit Provider Nurse Practitioner Family | DX: E78.00 Pure hypercholesterolemia, unspecified (principal); I10 Essential (primary) hypertension; I73.9 Peripheral vascular disease, unspecified; N39.0 Urinary tract infection, site not specified; R30.0 Dysuria; M19.90 Unspecified osteoarthritis, unspecified site; Z78.0 Asymptomatic menopausal state; C83.34 Diffuse large B-cell lymphoma, lymph nodes of axilla and upper limb | CPT/HCPCS: 80053; 80061; 82306; 83615 ==

== ENCOUNTER 2022-05-18 14:49 | Oncology outpatient (recurring) (ONCR) | payer MEDICARE, SELFPAY | END 2022-05-21 23:59 | disposition home or self-care (01) | PROVIDERS: PCP Family Medicine; Visit Provider Nurse Practitioner Family | DX: Z08 Encounter for follow-up examination after completed treatment for malignant neoplasm (principal); Z85.72 Personal history of non-Hodgkin lymphomas; Z92.21 Personal history of antineoplastic chemotherapy; Z92.3 Personal history of irradiation; Z72.0 Tobacco use | CPT/HCPCS: G0463 ==

== ENCOUNTER → 2022-06-25 09:23 | Outpatient (BNVA) | payer MEDICARE, SELFPAY | PROVIDERS: PCP Family Medicine; Visit Provider Internal Medicine Cardiovascular Disease | DX: I73.9 Peripheral vascular disease, unspecified (principal); R94.31 Abnormal electrocardiogram [ECG] [EKG]; R06.09 Other forms of dyspnea; I10 Essential (primary) hypertension; E78.5 Hyperlipidemia, unspecified; Z87.891 Personal history of nicotine dependence; R00.1 Bradycardia, unspecified; I25.2 Old myocardial infarction | CPT/HCPCS: 93005; 99214; 99215 ==

== ENCOUNTER 2022-07-06 13:01 | Oncology outpatient (recurring) (ONCR) | payer MEDICARE, SELFPAY ==
--- NOTE | 2022-07-06 13:10 | CT_ITS ---
WS: [email or web address] CT CHEST, ABDOMEN, AND PELVIS TECHNIQUE: Contrast-enhanced CT of the chest, abdomen, and pelvis with coronal and sagittal reformatt ed images. CLINICAL INFORMATION: RESTAGING/LYMPHOMA IN REMISSION COMPARISON: CT 03/24/2021 and 01/22/2020 DLP: 1738.[address] scans at [facility] use at least one of these dose optimization techniques: automated e xposure control; mA and/or kV adjustment per patient size (includes targeted exams where dose is matc hed to clinical indication); or iterative reconstruction. CT CHEST: No suspicious pulmonary parenchymal abnormalities.. No acute pulmonary infiltrates. No focal pneumoni a or pleural fluid. A few calcified granulomas. Aortic calcification. Proximal main pulmonary arterie s are normal. No mediastinal or hilar lymphadenopathy. Coronary calcification. No axillary lymphadeno denise. Heterogeneous nodular thyroid bilaterally similar to previous. Mild thoracic kyphosis. CT ABDOMEN AND PELVIS: Diffuse fatty infiltration liver. Normal portal vein and splenic vein.Cholecystectomy. Normal GE junc tion. Splenic granulomas. Normal caliber abdominal aorta. Adrenal glands are normal. No hydronephrosi s in either kidney. No upper abdominal lymphadenopathy. No periaortic lymphadenopathy. Sigmoid consti pation. No pelvic or inguinal lymphadenopathy. Disc space narrowing worse at L5-S1. Slight anterolist hesis L4 on L5. CT/CT chest abd pel w con* IMPRESSION: 1. No evidence recurrent or progressed disease in the chest abdomen or pelvis. 2. No adenopathy in the chest abdomen or pelvis. 3. Diffuse fatty infiltration of the liver. 4. Prior cholecystectomy 5. Small bilateral thyroid nodules.
[2022-07-06 14:24] LABS: Blood Urea Nitrogen 16 mg/dL (8-23)
[2022-07-06] MEDS: barium sulfate 450 mL Oral Susp PO (14:34)
[2022-07-06] MEDS: iohexol 350 mg/mL 100 mL Btl IV (14:34)
== END 2022-07-22 23:59 | disposition home or self-care (01) ==
LOC: RAD 13:03 → ONCMED 07-21 04:35
PROVIDERS: PCP Family Medicine; Visit Provider Nurse Practitioner Family
DX: C85.90 Non-Hodgkin lymphoma, unspecified, unspecified site (principal)
CPT/HCPCS: 71260; 74177; 82565; 84520

== ENCOUNTER → 2022-08-06 10:09 | Outpatient (BNVA) | payer MEDICARE, SELFPAY | PROVIDERS: PCP Family Medicine; Visit Provider Nurse Practitioner Family | DX: N39.0 Urinary tract infection, site not specified (principal) | CPT/HCPCS: 87086 ==

== ENCOUNTER → 2022-09-04 13:04 | Outpatient (BNVA) | payer MEDICARE, SELFPAY | PROVIDERS: PCP Family Medicine; Visit Provider Nurse Practitioner Family | DX: N30.01 Acute cystitis with hematuria (principal) | CPT/HCPCS: 87077; 87086; 87184 ==

== ENCOUNTER → 2022-09-18 10:40 | Outpatient (BNVA) | payer MEDICARE, SELFPAY | PROVIDERS: PCP Family Medicine; Visit Provider Family Medicine | DX: R30.0 Dysuria (principal); N30.01 Acute cystitis with hematuria | CPT/HCPCS: 81000; 87077; 87086; 87184 ==

== ENCOUNTER 2023-02-16 10:54 | Oncology outpatient (recurring) (ONCR) | payer MEDICARE, SELFPAY ==
[2023-02-16 11:24] LABS: Basophils % 0.5 %; Eosinophils # 0.2 10^3/uL (0.0-0.8); Eosinophils % 1.9 %; Hematocrit 45.4 % (37.0-47.0); Hemoglobin 14.3 g/dL (11.5-15.3); Lymphocytes # 1.9 10^3/uL (0.8-4.8); Lymphocytes % 24.2 %; Mean Corpuscular HGB Conc 31.5 g/dL (30.0-36.0); Mean Corpuscular Hemoglobin 27.3 pg (28.0-34.0); Mean Corpuscular Volume 86.6 fl (81-99); Mean Platelet Volume 9.6 fL (7.4-10.4); Monocytes # 0.4 10^3/uL (0.2-0.9); Monocytes % 5.1 %; Neutrophils # 5.42 10^3/uL (1.8-7.7); Nucleated Red Blood Cells % 0 %; Platelet Count 232 10^3/cmm (130-400); Red Blood Count 5.24 10^6/uL (4.1-5.3); Red Cell Distribution Width 14.3 % (12.1-15.1)
[2023-02-16 11:56] LABS: Alanine Aminotransferase 21 U/L (0-33); Albumin Level 4.3 g/dL (3.5-5.2); Alkaline Phosphatase 67 U/L (35-105); Anion Gap 14.6 (5-19); Aspartate Amino Transferase 21 U/L (0-32); Blood Urea Nitrogen 15 mg/dL (8-23); Calcium 9.3 mg/dL (8.5-10.5); Carbon Dioxide 27 mmol/L (22-29); Chloride 104 mmol/L (98-107); Globulin 2.6 g/dL (1.3-4.6); Glucose 106 mg/dL (65-115); Lactate Dehydrogenase 169 U/L (135-214); Osmolality Calculated 293 mOsm/kg (285-295); Potassium 4.6 mmol/L (3.5-5.1); Sodium 141 mmol/L (136-145); Total Bilirubin 0.5 mg/dL (0.15-1.2); Total Protein 6.9 g/dL (6.6-8.7)
[2023-02-16 11:57] LABS: Chol HDL Ratio 2.86 mg/dL (0.0-4.40); Cholesterol 103 mg/dL (0-200); HDL Cholesterol 36 mg/dL (60-100); LDL Cholesterol Calculated 49 mg/dL (50-129); LDL HDL Ratio 1.36 RATIO (0.00-3.22); Triglycerides 89 mg/dL (0-150)
[2023-02-16 15:40] LABS: Bilirubin Urine Neg (Negative); Blood Urine Neg (Negative); Glucose Urine UA Norm (Normal); Ketones Urine Negative (Negative); Protein Urine Neg (Negative); Urine Color Yellow (Yellow); Urobilinogen Urine Norm (Negative); pH Urine 5 (5-7)
[2023-02-16 15:41] LABS: Add Urine Microscopic? YES; Leukocyte Esterase Urine 2+ (Negative); Nitrate Urine Positive (Negative); Urine Appearance SL Hazy (CLEAR); WBC Urine 40-55 /hpf (0-5)
[2023-02-16 15:42] LABS: Add Urine Culture? Yes; Bacteria Urine 3+ /hpf; Mucus Urine TRACE /hpf; Squamous Epithelial Cell Urine 0-4 /hpf (0-5)
== END 2023-02-19 23:59 | disposition home or self-care (01) ==
PROVIDERS: Nurse Practitioner Family; PCP Family Medicine; Visit Provider Internal Medicine Medical Oncology
DX: Z08 Encounter for follow-up examination after completed treatment for malignant neoplasm (principal); Z85.72 Personal history of non-Hodgkin lymphomas; R35.0 Frequency of micturition; R07.89 Other chest pain; Z92.3 Personal history of irradiation; Z92.21 Personal history of antineoplastic chemotherapy; Z87.891 Personal history of nicotine dependence; C85.90 Non-Hodgkin lymphoma, unspecified, unspecified site
CPT/HCPCS: 36415; 80053; 80061; 81001; 83615; 85025; 87077; 87086; 87186; 93005; 99214

== ENCOUNTER 2023-02-25 14:35 | Outpatient (CLI) | payer MEDICARE, SELFPAY ==
--- NOTE | 2023-02-25 14:45 | MM_ITS ---
WS: [email or web address] BILATERAL 3D TOMOSYNTHESIS DIGITAL SCREENING MAMMOGRAPHY WITH CAD CLINICAL INFORMATION: screening HISTORY: Screening mammogram. No current complaints. History of lymphoma. COMPARISON: 2021 TECHNIQUE: Bilateral CC and MLO views. FINDINGS: Scattered fibroglandular densities bilaterally. No suspicious focal mass, asymmetry, calcifications, or architectural distortion. No evidence of malignancy. Punctate and lucent centered calcifications. MM/[place] [id number] IMPRESSION: BI-RADS: 2-Benign FOLLOW UP: 1 Year Follow-up Recommend return to annual screening mammography.
== END 2023-02-25 14:36 | disposition home or self-care (01) ==
PROVIDERS: PCP Family Medicine; Visit Provider Nurse Practitioner Family
DX: Z12.31 Encounter for screening mammogram for malignant neoplasm of breast (principal)
CPT/HCPCS: 77063; 77067

== ENCOUNTER 2023-03-19 09:20 | Outpatient (CLI) | payer MEDICARE, SELFPAY ==
[2023-03-19 10:46] VITALS: BMI 29.6
--- NOTE | 2023-03-19 10:49 | NMCV_ITS ---
NM jono perf SPECT r/s* [id number] Kita Carlos Age: 73 Gender: F : 1950 Exam Date: 03/19/2023 10:49 Ordering Phys: Charito Sung Technologist: FRED Scott Exam Location: [facility] Indications: ABNORMAL EKG, CHEST PAIN, SHORTNESS OF BREATH STRESS TEST Please see separate stress test report in [facility] for full findings IMAGE PROTOCOL Rest/Stress 1 Lexiscan Day Radiopharmaceutical Dose (mCi) Administration Site Administered by Rest: Tc-99m 10.2 IV FRED Joya Sestamibi Stress:Tc-99m 33.0 IV FRED Joya Sestamibi Rest: 19-Mar-2023 60 Discovery 630 Stress: 19-Mar-2023 30 Discovery 630 0.4mg Lexiscan. Images obtained in supine and prone position. SPECT RESULTS Technical Quality: Excellent Raw Data Analysis: Normal Image Corrections: No attenuation or motion correction applied Summed Stress Score: 1 Summed Rest Score: 0 Summed Difference Score: 1 PERFUSION FINDINGS Small area of slightly decreased tracer uptake was noted in the mid inferolateral region with some reversibility FUNCTIONAL RESULTS (calculated via Gated SPECT) Stress Image LV EF (%): 57 Stress EDV (mL):87 TID: 1.08 Stress ESV (mL):37 FUNCTIONAL FINDINGS: Segmental wall motion analysis revealing no gross wall motion normalities IMPRESSIONS 1. Myocardial perfusion imaging revealing a very small area of reversible defect in the mid inferolateral region, suggesting ischemia in the circumflex territory. However because of the inconsistency with the SPECT imaging, the reliability is questionable. 2. Normal LV ejection fraction of 57%. 3. LV wall motion analysis revealing no gross wall motion abnormalities. 4. Normal LV volume No similar previous studies are available for comparison Dr Hugo Matthews MD [facility] (Electronically Signed) Final Date: 19 March 2023 17:06 S
--- NOTE | 2023-03-19 10:49 | ECG_ITS ---
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 Interpretive Statements NAME OF STUDY: LEXISCAN SESTAMIBI STRESS TEST INDICATION: Chest Pain, PROCEDURE: At the baseline, the EKG revealed normal sinus rhythm with a poor R wave progression. Nonspecific T wave changes. Possible old lateral wall myocardial infarction.. The baseline heart was 63 bpm with a blood pressue of 143/82 mm of Hg Lexiscan was infused over a period of 20 seconds. A total of 0.4 milligrams of Lexiscan was infused. The stress phase was continued for a total of 5 minutes. Heart rate at the end of the stress phase was 78 bpm with a blood pressure 149/82 mm of Hg. The EKG at the peak infusion revealed no significant changes. Sestamibi was injected 20 seconds after the Lexiscan infusion. Heart rate at the end of the recovery phase was 71 bpm with a blood pressure of 140/81 mm of Hg. CONCLUSION: 1. No significant EKG changes with the LexiScan infusion 2. No LexiScan induced chest pain or cardiac arrhythmia 3. Normal blood pressure and heart rate response 4. Sestamibi/sestamibi perfusion scan pending; see separate report. Electronically Signed On 03-22-2023 11:43:04 CDT by Huog Matthews M.D. [id number]
[2023-03-19] MEDS: regadenoson 0.4 Mg/5 ml Syringe IVP (11:37)
[2023-03-19 11:54] VITALS: BP 140/81; PULSE 72
== END 2023-03-19 09:21 | disposition home or self-care (01) ==
PROVIDERS: PCP Family Medicine; Visit Provider Nurse Practitioner Family
DX: R07.9 Chest pain, unspecified (principal)
CPT/HCPCS: 36415; 78452; 93017; 96374; A9500; J2785

== ENCOUNTER 2023-04-12 09:27 | Outpatient (CLI) | payer MEDICARE, SELFPAY ==
[2023-04-12] MEDS: iohexol 350 mg/mL 500 mL Btl (per mL) PO (10:11)
[2023-04-12 10:19] LABS: Basophils # 0.1 10^3/uL (0.0-0.1); Basophils % 0.7 %; Eosinophils # 0.2 10^3/uL (0.0-0.8); Eosinophils % 2.8 %; Hematocrit 44.3 % (37.0-47.0); Hemoglobin 13.6 g/dL (11.5-15.3); Lymphocytes % 26.4 %; Mean Corpuscular HGB Conc 30.7 g/dL (30.0-36.0); Mean Corpuscular Volume 88.1 fl (81-99); Mean Platelet Volume 9.7 fL (7.4-10.4); Monocytes # 0.4 10^3/uL (0.2-0.9); Monocytes % 5.7 %; Neutrophils # 4.84 10^3/uL (1.8-7.7); Nucleated Red Blood Cells % 0 %; Platelet Count 230 10^3/cmm (130-400); Red Blood Count 5.03 10^6/uL (4.1-5.3); Red Cell Distribution Width 14.4 % (12.1-15.1); White Blood Count 7.6 10^3/uL (4.0-10.0)
[2023-04-12 10:41] LABS: Alanine Aminotransferase 22 U/L (0-33); Albumin Level 4.2 g/dL (3.5-5.2); Alkaline Phosphatase 71 U/L (35-105); Anion Gap 15.1 (5-19); Aspartate Amino Transferase 20 U/L (0-32); Blood Urea Nitrogen 15 mg/dL (8-23); Carbon Dioxide 27 mmol/L (22-29); Chloride 106 mmol/L (98-107); Globulin 2.6 g/dL (1.3-4.6); Glucose 113 mg/dL (65-115); Lactate Dehydrogenase 168 U/L (135-214); Osmolality Calculated 298 mOsm/kg (285-295); Potassium 5.1 mmol/L (3.5-5.1); Sodium 143 mmol/L (136-145); Total Bilirubin 0.4 mg/dL (0.15-1.2); Total Protein 6.8 g/dL (6.6-8.7)
--- NOTE | 2023-04-12 11:00 | CT_ITS ---
WS: [email or web address] CT CHEST, ABDOMEN AND PELVIS WITH CONTRAST. HISTORY: Surveillance lymphoma. TECHNIQUE: Contiguous 5 mm axial imaging performed through the chest, abdomen and pelvis with IV cont rast, oral contrast has been provided. Coronal and sagittal reformats chest. Coronal and sagittal ref ormats through the abdomen and pelvis. All CT scans at [facility] use at least one of these d ose optimization techniques: automated exposure control; mA and/or kV adjustment per patient size (in cludes targeted exams where dose is matched to clinical indication); or iterative reconstruction. CONTRAST: Omnipaque 350; 100 mL IV. DLP: 1051.20 mGy.cm COMPARISON: 07/06/[address]: Very minimal atelectasis RIGHT middle lobe. No mass, pneumonia or nodules. Benign granuloma RIGHT upper lobe. No axillary, mediastinal or hilar adenopathy. Mild atherosclerosis aorta. Mild car diac enlargement, LEFT chambers. No pericardial or pleural effusions. Coronary artery atherosclerotic plaque. Small bilateral thyroid nodules. Abdomen CT: Small hiatal hernia. Prior cholecystectomy. Hepatic and splenic granulomata. Mild hepatic enlargement and steatosis. Spleen is 11.3 cm in length. Normal bile duct. Normal pancreas. RIGHT adr enal gland is normal. 10 mm nodule LEFT adrenal gland is stable. No renal mass or obstruction. Benign nonobstructing calcifications LEFT kidney. Mild atherosclerosis aorta. Mesenteric or retroperitoneal lymph nodes. No GI tract obstruction. Normal appendix. Increased fecal content in the distal colon. A few scattered diverticula. No acute diverticulitis. Pelvic CT: Prior hysterectomy. No pelvic mass. No adenopathy. Mild subchondral cystic changes within the hips. No osteoblastic or osteolytic bone disease. CT/CT chest abdpel w/*[id number] IMPRESSION: 1. No lymphadenopathy within the chest, abdomen or pelvis. 2. No ascites or free air. 3. Normal size spleen, 11.3 cm. 4. Mild hepatic enlargement and steatosis. 5. Prior cholecystectomy and hysterectomy.
[2023-04-12] MEDS: iohexol 350 mg/mL 500 mL Btl (per mL) IV (11:01)
== END 2023-04-12 09:28 | disposition home or self-care (01) ==
PROVIDERS: PCP Family Medicine; Visit Provider Nurse Practitioner Family
DX: C85.90 Non-Hodgkin lymphoma, unspecified, unspecified site (principal); R16.0 Hepatomegaly, not elsewhere classified; K76.0 Fatty (change of) liver, not elsewhere classified; Z90.49 Acquired absence of other specified parts of digestive tract; Z90.710 Acquired absence of both cervix and uterus
CPT/HCPCS: 36415; 71260; 74177; 80053; 83615; 85025; Q9967

== ENCOUNTER 2023-04-21 13:57 | Oncology outpatient (recurring) (ONCR) | payer MEDICARE, SELFPAY | END 2023-04-21 23:59 | disposition home or self-care (01) | PROVIDERS: PCP Family Medicine; Visit Provider Internal Medicine Medical Oncology | DX: Z08 Encounter for follow-up examination after completed treatment for malignant neoplasm (principal); Z85.72 Personal history of non-Hodgkin lymphomas; Z92.21 Personal history of antineoplastic chemotherapy; Z92.3 Personal history of irradiation; Z87.891 Personal history of nicotine dependence | CPT/HCPCS: 99213 ==

== ENCOUNTER → 2023-10-05 13:04 | Outpatient (BNVA) | payer MEDICARE, SELFPAY | PROVIDERS: PCP Family Medicine; Visit Provider Nurse Practitioner Family | DX: N39.0 Urinary tract infection, site not specified (principal); I10 Essential (primary) hypertension; I73.9 Peripheral vascular disease, unspecified; M19.90 Unspecified osteoarthritis, unspecified site; E78.5 Hyperlipidemia, unspecified; E78.00 Pure hypercholesterolemia, unspecified; F43.29 Adjustment disorder with other symptoms; Z23 Encounter for immunization | CPT/HCPCS: 80053; 80061; 83615; 84443 ==

== ENCOUNTER → 2024-01-10 11:50 | Outpatient (BNVA) | payer MEDICARE, SELFPAY | PROVIDERS: PCP Family Medicine; Visit Provider Family Medicine | DX: Z13.6 Encounter for screening for cardiovascular disorders (principal); E78.5 Hyperlipidemia, unspecified; N39.0 Urinary tract infection, site not specified; C85.90 Non-Hodgkin lymphoma, unspecified, unspecified site; R25.1 Tremor, unspecified; E03.9 Hypothyroidism, unspecified; I10 Essential (primary) hypertension | CPT/HCPCS: 80053; 80061; 81000; 82607; 84443; 85025 ==

== ENCOUNTER 2024-03-03 13:37 | Outpatient (CLI) | payer MEDICARE, SELFPAY ==
--- NOTE | 2024-03-03 13:39 | MM_ITS ---
WS: [email or web address] Bilateral screening 3D tomosynthesis digital mammogram, 03/03/2024 Clinical Data: SCREENING Comparison: 02/25/2023, 02/13/2022, 08/29/2018, 08/23/2018. Findings: The breast parenchymal pattern shows fibroglandular tissue. No spiculated masses or clustered calcifi cations are seen. There are no secondary signs of carcinoma. There are mole markers over both breasts . Impression: 1. Negative bilateral mammogram unchanged. 2. Recommend annual screening mammograms. MM/[place] [id number] BIRADS: 1-Negative FOLLOW UP: 1 Year Follow-up The CAD tray checker was used.
[2024-03-03] MEDS: iohexol 300 mg/mL 100 mL Btl IV (14:42)
[2024-03-03 14:45] LABS: Blood Urea Nitrogen 15 mg/dL (8-23)
[2024-03-03] MEDS: iohexol 350 mg/mL 500 mL Btl (per mL) IV (14:52)
--- NOTE | 2024-03-03 15:00 | CT_ITS ---
WS: [email or web address] CT CHEST, ABDOMEN AND PELVIS WITH CONTRAST HISTORY: restaging lymphoma TECHNIQUE: Contiguous 5 mm axial imaging performed through the chest, abdomen and pelvis with IV cont rast, oral contrast has been provided. Coronal and sagittal reformats chest. Coronal and sagittal ref ormats through the abdomen and pelvis. All CT scans at [facility] use at least one of these d ose optimization techniques: automated exposure control; mA and/or kV adjustment per patient size (in cludes targeted exams where dose is matched to clinical indication); or iterative reconstruction. CONTRAST: Omnipaque 350; 100 mL IV. DLP: 1099.55 mGy.cm COMPARISON: 04/12/2023, PET/CT 05/13/[address]: Lungs are clear and well aerated. There are a few benign granulomata. No mass or nodule. No pericardial thickening or pleural effusion. Heart is slightly enlarged but stable. Moderate coronary artery calcifications. No mediastinal or hilar adenopathy. No axillary lymph nodes which are progres sing. Bilateral lower lobe thyroid nodules are reidentified. No destructive bone lesions. Abdomen CT: Liver is slightly enlarged. No mass. Hepatic and splenic granulomata. Prior cholecystecto my. Normal portal vein. Normal pancreas. No adrenal mass. Moderate atherosclerosis aorta with no aneu rysm. No renal obstruction. Nonobstructing calcifications in the renal pelves. Too small to character ize hypodensities within each renal cortex. 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 No ascites or adenopathy. Benign stable nodule LEFT upper quadrant may be a small splenule. No centra l mesenteric adenopathy. No GI tract obstruction. Diffuse moderate constipation. No colitis. Normal a ppendix. Pelvic CT: No free fluid or adenopathy within the pelvis. Prior hysterectomy. Increase in thoracic kyphosis. Moderate spondylitic changes throughout the spine. Stable sclerotic fo cus sternal body. Subchondral cystic changes within the acetabulum. IMPRESSION: 1. No recurrent adenopathy within the chest, abdomen or pelvis. No suspicious lymphadenopathy. 2. No pulmonary mass or nodule. 3. Mild hepatomegaly. 4. Prior cholecystectomy and hysterectomy. 5. Bilateral thyroid nodules, no change.
== END 2024-03-03 13:38 | disposition home or self-care (01) ==
LOC: RAD 13:37
PROVIDERS: PCP Family Medicine; Visit Provider Internal Medicine Medical Oncology
DX: Z12.31 Encounter for screening mammogram for malignant neoplasm of breast (principal); R92.323 Mammographic fibroglandular density, bilateral breasts; E04.2 Nontoxic multinodular goiter; C85.90 Non-Hodgkin lymphoma, unspecified, unspecified site
CPT/HCPCS: 71260; 74177; 77063; 77067; 82565; 84520; Q9967

== ENCOUNTER → 2024-04-03 10:48 | Outpatient (BNVA) | payer MEDICARE, SELFPAY | PROVIDERS: PCP Family Medicine; Visit Provider Psychiatry & Neurology Neurology | DX: R25.1 Tremor, unspecified (principal) | CPT/HCPCS: 99203 ==

== ENCOUNTER → 2024-04-18 14:04 | Outpatient (BNVA) | payer MEDICARE, SELFPAY | PROVIDERS: PCP Family Medicine; Visit Provider Nurse Practitioner Family | DX: N30.01 Acute cystitis with hematuria (principal) | CPT/HCPCS: 87077; 87086; 87184 ==

== ENCOUNTER 2024-04-27 12:15 | Oncology outpatient (recurring) (ONCR) | payer MEDICARE, SELFPAY ==
[2024-04-27 12:53] LABS: Basophils % 0.6 %; Eosinophils # 0.2 10^3/uL (0.0-0.8); Eosinophils % 2.2 %; Hematocrit 42.2 % (36-47); Lymphocytes # 1.9 10^3/uL (0.8-4.8); Lymphocytes % 27.8 %; Mean Corpuscular HGB Conc 31.8 g/dL (30-55); Mean Corpuscular Hemoglobin 27.6 pg (27-33); Mean Platelet Volume 10.2 fL (7.4-10.4); Monocytes # 0.4 10^3/uL (0.2-0.9); Monocytes % 5.4 %; Neutrophils # 4.28 10^3/uL (1.8-7.7); Neutrophils % 63.7 %; Nucleated Red Blood Cells % 0 %; Platelet Count 208 10^3/cmm (157-399); Red Blood Count 4.85 10^6/uL (3.85-5.65); Red Cell Distribution Width 14.6 % (12.1-15.1); White Blood Count 6.72 10^3/uL (3.29-11.43)
[2024-04-27 13:37] LABS: 25 Hydroxy Vitamin D 39 ng/mL (30-100); Alanine Aminotransferase 18 U/L (0-33); Albumin Level 4.2 g/dL (3.5-5.2); Alkaline Phosphatase 66 U/L (35-105); Anion Gap 12.5 (5-19); Aspartate Amino Transferase 22 U/L (0-32); Blood Urea Nitrogen 17 mg/dL (8-23); Calcium 9.6 mg/dL (8.5-10.5); Carbon Dioxide 27 mmol/L (22-29); Chloride 104 mmol/L (98-107); Globulin 2.7 g/dL (1.3-4.6); Glucose 110 mg/dL (65-115); Lactate Dehydrogenase 174 U/L (135-214); Osmolality Calculated 290 mOsm/kg (285-295); Potassium 4.5 mmol/L (3.5-5.1); Sodium 139 mmol/L (136-145); Total Bilirubin 0.5 mg/dL (0.15-1.2); Total Protein 6.9 g/dL (6.6-8.7)
[2024-04-27 13:49] LABS: Cholesterol 97 mg/dL (0-200)
[2024-05-01 10:30] LABS: Copper Level 100 mcg/dL (70-175)
== END 2024-05-21 23:59 | disposition home or self-care (01) ==
PROVIDERS: Internal Medicine; Psychiatry & Neurology Neurology; PCP Family Medicine; Visit Provider Internal Medicine Medical Oncology
DX: C85.90 Non-Hodgkin lymphoma, unspecified, unspecified site (principal); E55.9 Vitamin D deficiency, unspecified; E78.00 Pure hypercholesterolemia, unspecified; R25.1 Tremor, unspecified
CPT/HCPCS: 36415; 80053; 82306; 82465; 82525; 83615; 83735; 85025; 99213; 99214

== ENCOUNTER 2024-05-05 13:26 | Outpatient (CLI) | payer MEDICARE, SELFPAY ==
--- NOTE | 2024-05-05 13:45 | MR_ITS ---
WS: [email or web address] MRI BRAIN WITH AND WITHOUT CONTRAST HISTORY: R25.1 - Tremor, unspecified COMPARISON: None available. TECHNIQUE: Multiplanar imaging performed through the brain with MultiHance 15 ml's IV. No acute infarcts are seen. Cheung-white matter differentiation is well preserved. There is mild small vessel ischemic changes throughout the white matter. Increased T2 and FLAIR signal adjacent to the oc cipital horns. Small amount of prior ischemic disease in the renee. Only very mild atrophy. No susceptibility artifacts or prior lacunar infarcts. Ventricles and extra-axial spaces are normal. Clivus and pituitary gland are normal. Visualized posterior fossa and brainstem are also normal. Postcontrast images are negative for masses or vascular malformations. Dural venous sinuses are normal. Paranasal sinuses: Well aerated with no significant disease. Mastoid air cells: Normal. Calvarium and scalp: Normal. MR/MR head wo/w con [id number] IMPRESSION: 1. Normal diffusion imaging. No acute infarct. 2. Mild atrophy and mild small vessel ischemic disease. 3. No mass or metastatic disease.
[2024-05-05] MEDS: gadobenate dimeglumine 20 mL vial IV (15:02)
== END 2024-05-05 13:27 | disposition home or self-care (01) ==
LOC: RAD 13:27
PROVIDERS: PCP Family Medicine; Visit Provider Psychiatry & Neurology Neurology
DX: R25.1 Tremor, unspecified (principal)
CPT/HCPCS: 70553; A9577

== ENCOUNTER → 2024-08-25 16:14 | Outpatient (BNVA) | payer MEDICARE, SELFPAY | PROVIDERS: PCP Family Medicine; Visit Provider Nurse Practitioner Family | DX: R05.9 Cough, unspecified (principal) | CPT/HCPCS: 87426; 87880 ==

== ENCOUNTER → 2024-09-28 12:30 | Outpatient (BNVA) | payer MEDICARE, SELFPAY | PROVIDERS: PCP Clinical Nurse Specialist Adult Health; Visit Provider Psychiatry & Neurology Neurology | DX: G25.0 Essential tremor (principal) | CPT/HCPCS: 99212; 99213 ==

== ENCOUNTER → 2024-10-17 10:32 | Outpatient (BNVA) | payer MEDICARE, SELFPAY | PROVIDERS: PCP Clinical Nurse Specialist Adult Health; Visit Provider Clinical Nurse Specialist Adult Health | DX: N39.0 Urinary tract infection, site not specified (principal) | CPT/HCPCS: 81000; 87086 ==

== ENCOUNTER 2025-03-05 12:44 | Outpatient (CLI) | payer MEDICARE, SELFPAY ==
--- NOTE | 2025-03-05 12:53 | MM_ITS ---
WS: [email or web address] BILATERAL 3D TOMOSYNTHESIS DIGITAL SCREENING MAMMOGRAPHY WITH CAD CLINICAL INFORMATION: SCREENING HISTORY: Screening mammogram. No current complaints. COMPARISON: 2023 TECHNIQUE: Bilateral CC and MLO views. FINDINGS: Scattered fibroglandular densities bilaterally. No suspicious focal mass, asymmetry, calcifications, or architectural distortion. No evidence of malignancy. Punctate and lucent centered calcifications. Vascular calcification. MM/MM scr tomosynthesis [id number] IMPRESSION: DENSITY: There are scattered areas of fibroglandular density. BI-RADS: 2 - Benign. FOLLOW UP: 1 Year Follow-up Recommend return to annual screening mammography.
== END 2025-03-05 12:45 | disposition home or self-care (01) ==
PROVIDERS: PCP Clinical Nurse Specialist Adult Health; Visit Provider Family Medicine
DX: Z12.31 Encounter for screening mammogram for malignant neoplasm of breast (principal); R92.323 Mammographic fibroglandular density, bilateral breasts; R92.1 Mammographic calcification found on diagnostic imaging of breast
CPT/HCPCS: 77063; 77067

== ENCOUNTER → 2025-04-11 13:46 | Outpatient (BNVA) | payer MEDICARE, SELFPAY | PROVIDERS: PCP Clinical Nurse Specialist Adult Health; Visit Provider Nurse Practitioner Family | DX: R39.9 Unspecified symptoms and signs involving the genitourinary system (principal) | CPT/HCPCS: 81000 ==

== ENCOUNTER 2025-04-26 11:25 | Oncology outpatient (recurring) (ONCR) | payer MEDICARE, SELFPAY ==
[2025-04-26 12:17] LABS: Basophils % 0.6 %; Eosinophils # 0.2 10^3/uL (0.0-0.8); Eosinophils % 3.3 %; Hematocrit 42.4 % (36-47); Lymphocytes # 2.1 10^3/uL (0.8-4.8); Lymphocytes % 31.4 %; Mean Corpuscular HGB Conc 31.4 g/dL (30-55); Mean Platelet Volume 9.9 fL (7.4-10.4); Monocytes # 0.4 10^3/uL (0.2-0.9); Monocytes % 5.9 %; Neutrophils # 3.93 10^3/uL (1.8-7.7); Neutrophils % 58.4 %; Nucleated Red Blood Cells % 0 %; Platelet Count 220 10^3/cmm (157-399); Red Blood Count 4.93 10^6/uL (3.85-5.65); Red Cell Distribution Width 14.2 % (12.1-15.1); White Blood Count 6.73 10^3/uL (3.29-11.43)
[2025-04-26 12:23] LABS: Bilirubin Urine Negative (Negative); Blood Urine Negative (Negative); Glucose Urine UA Negative (Normal); Ketones Urine Negative (Negative); Leukocyte Esterase Urine Trace (Negative); Nitrate Urine Negative (Negative); Protein Urine Negative (Negative); Specific Gravity, Urine 1.018 (1.005-1.030); Urine Appearance Clear (CLEAR); Urine Color Yellow (Yellow); pH Urine 6.5 (5-7)
[2025-04-26 12:29] LABS: Add Urine Microscopic? YES; Bacteria Urine None Seen /hpf; Hyaline Casts Urine 1.21 /lpf; RBC Urine 0-2 /hpf (0-2); Squamous Epithelial Cell Urine 0-5 /hpf (0-5); WBC Urine 0-5 /hpf (0-5)
[2025-04-26 12:32] LABS: Add Urine Culture? No
[2025-04-26 12:38] LABS: Alanine Aminotransferase 13 U/L (0-33); Albumin Level 4.2 g/dL (3.5-5.2); Alkaline Phosphatase 82 U/L (35-105); Anion Gap 14.7 (5-19); Aspartate Amino Transferase 17 U/L (0-32); Blood Urea Nitrogen 13 mg/dL (8-23); Calcium 9.2 mg/dL (8.5-10.5); Carbon Dioxide 29 mmol/L (22-29); Chloride 106 mmol/L (98-107); Chol HDL Ratio 2.97 mg/dL (0.0-4.40); Cholesterol 89 mg/dL (0-200); Creatinine Clr Calc Pharmacy 60.6394; Globulin 2.9 g/dL (1.3-4.6); Glucose 119 mg/dL (65-115); HDL Cholesterol 30 mg/dL (60-100); LDL Cholesterol Calculated 44 mg/dL (50-129); LDL HDL Ratio 1.47 RATIO (0.00-3.22); Lactate Dehydrogenase 175 U/L (135-214); Osmolality Calculated 299 mOsm/kg (285-295); Potassium 5.7 mmol/L (3.5-5.1); Sodium 144 mmol/L (136-145); Total Bilirubin 0.3 mg/dL (0.15-1.2); Total Protein 7.1 g/dL (6.6-8.7); Triglycerides 74 mg/dL (0-150)
== END 2025-05-21 23:59 | disposition home or self-care (01) ==
PROVIDERS: Nurse Practitioner; Nurse Practitioner Family; PCP Clinical Nurse Specialist Adult Health; Visit Provider Internal Medicine Medical Oncology
DX: Z08 Encounter for follow-up examination after completed treatment for malignant neoplasm (principal); Z85.72 Personal history of non-Hodgkin lymphomas; R03.0 Elevated blood-pressure reading, without diagnosis of hypertension; R30.0 Dysuria; Z87.891 Personal history of nicotine dependence; Z92.21 Personal history of antineoplastic chemotherapy; Z92.3 Personal history of irradiation; E78.5 Hyperlipidemia, unspecified
CPT/HCPCS: 36415; 80053; 80061; 81001; 83615; 85025; 99214

== ENCOUNTER → 2025-05-07 08:58 | Outpatient (BNVA) | payer MEDICARE, SELFPAY | PROVIDERS: PCP Clinical Nurse Specialist Adult Health; Visit Provider Internal Medicine | DX: C85.90 Non-Hodgkin lymphoma, unspecified, unspecified site (principal) | CPT/HCPCS: 80048 ==

== ENCOUNTER → 2025-06-28 14:00 | Outpatient (BNVA) | payer MEDICARE, SELFPAY | PROVIDERS: PCP Clinical Nurse Specialist Adult Health; Visit Provider Clinical Nurse Specialist Adult Health | DX: E78.5 Hyperlipidemia, unspecified (principal); R73.9 Hyperglycemia, unspecified; E55.9 Vitamin D deficiency, unspecified; I10 Essential (primary) hypertension | CPT/HCPCS: 80053; 80061; 81000; 82306; 83036; 85025 ==

== ENCOUNTER → 2025-07-27 13:44 | Outpatient (BNVA) | payer MEDICARE, SELFPAY | PROVIDERS: PCP Clinical Nurse Specialist Adult Health; Visit Provider Emergency Medicine | DX: R30.0 Dysuria (principal); N39.0 Urinary tract infection, site not specified | CPT/HCPCS: 81000; 87086 ==

== ENCOUNTER 2025-08-21 12:43 | Outpatient (CLI) | payer MEDICARE, SELFPAY ==
--- NOTE | 2025-08-21 13:00 | XR_ITS ---
WS: [email or web address] DEXA (DUAL ENERGY X-RAY ABSORPTIOMETRY) Bone mineral density was performed using a Quikey machine. HISTORY: Z78.0 - Asymptomatic menopausal state COMPARISON: 02/25/2022 Lumbar spine BMD (L1-L4): 1.190 g/cm2 T score: 0.1 Z score: 1.6 Total hip BMD: Left: 0.929 g/cm2. T score: -0.6 Z score: 1.0 Right: 0.924 g/cm2. T score: -0.7 Z score: 1.0 10 year probability of a major osteoporotic fracture is 12.0%. Compared to the prior study from 02/25/2022. Lumbar spine bone mineral density has increased by 2.8%. Bilateral hips bone mineral density has decreased by 2.1%. XR/XR DEXA axial skeleton* [id number] IMPRESSION: NORMAL BONE MINERAL DENSITY based upon the WHO classification for females. Significant increase in bone mineral density within the lumbar spine since the prior exam. Significant decrease in bone mineral density in the hips since the prior exam.
== END 2025-08-21 12:44 | disposition home or self-care (01) ==
LOC: RAD 12:45
PROVIDERS: PCP Pediatrics; Visit Provider Clinical Nurse Specialist Adult Health
DX: Z13.820 Encounter for screening for osteoporosis (principal); Z78.0 Asymptomatic menopausal state; C85.90 Non-Hodgkin lymphoma, unspecified, unspecified site; M85.88 Other specified disorders of bone density and structure, other site
CPT/HCPCS: 77080

== ENCOUNTER → 2025-10-12 10:06 | Outpatient (BNVA) | payer MEDICARE, SELFPAY | PROVIDERS: PCP Pediatrics; Visit Provider Clinical Nurse Specialist Adult Health | DX: Z01.89 Encounter for other specified special examinations (principal); I10 Essential (primary) hypertension; Z78.0 Asymptomatic menopausal state; R30.0 Dysuria | CPT/HCPCS: 80053; 80061; 81000; 82306; 84443; 85025 ==

== ENCOUNTER → 2025-11-19 11:28 | Outpatient (BNVA) | payer MEDICARE, SELFPAY | PROVIDERS: PCP Pediatrics; Visit Provider Clinical Nurse Specialist Adult Health | DX: J06.9 Acute upper respiratory infection, unspecified (principal) | CPT/HCPCS: 87400 ==